=== PATIENT | female | born 1970 | race Caucasian/White ===

== ENCOUNTER 2023-04-30 10:19 | Emergency (ER) | payer OTHER, SELFPAY ==
[2023-04-30 10:32] VITALS: BP 127/99
[2023-04-30 11:21] VITALS: BP 97/83
--- NOTE | 2023-04-30 11:40 | ED.GENMED ---
History of Present Illness
General
Chief Complaint: Alcohol Problem
Source: patient and family
Time Seen by Provider: 04/30/23 11:13
Travel History
Have you had any contact with someone who has COVID-19?: No
Do you have any symptoms of coronavirus? Fever > 100 degrees, chills, cough, shortness of breath, sore throat, loss of taste or smell, muscle aches, or headache?: No
History of Present Illness
History of Present Illness:
52-year-old female who has not seen a doctor in many years presents emergency department seeking help regarding her alcoholism. She has not been in recovery in the past. She states that she drinks between 6-9 5 ounce glasses of wine per day, most
recently this morning. She denies physical symptoms such as chest pain, shortness of breath, abdominal pain, nausea, vomiting, bleeding. She does report loss of appetite and finds the process of eating unappealing to her. She has has episodes of
choking in the past, but denies pain with swallowing or chewing. She has lost weight in the last 2 years.
Past History
Past History
ED Past Medical History: HTN
Social History
Tobacco: Non-smoker
Alcohol: Chronic alcoholic
Drug: None
Personal:
Living: with family
Phy Exam
Physical Exam
Physical Exam:
GENERAL: Alert , in no apparent distress
EYE: pupils equal and reactive
NECK: Supple, no significant adenopathy.
ENT: o/p clr, mm slightly dry
CARDIAC: Regular rate and rhythm .
LUNGS: Clear breath sounds bilaterally, no acute respiratory distress, no wheezes/rales/rhonchi
ABDOMEN: Soft, without focal tenderness, no r/g, no cvat
NEUROLOGICAL: Alert and oriented, no focal neuro deficits but obviously slightly intoxicated
SKIN: Warm and dry, skin intact.
MUSCULOSKELETAL: No edema, well perfused.
PSYCH: Normal and appropriate interaction.
Scores
Withdrawal Assessment of Alcohol
Withdrawal Assessment Completed?: Not applicable
Course
Orders/Labs/Results
Orders:
Orders
04/30/23 11:41
Alcohol Urgent
Basic Metabolic Panel Urgent
Complete Blood Count/With Diff Urgent
Abnormal Lab Results
04/30/23
11:41
RBC 3.52 L 10^6/uL
(4.20-5.40)
Hct 35.7 L %
(37.0-47.0)
MCV 101.4 H fL
(81.0-99.0)
MCH 37.2 H pg
(27.0-31.0)
Immature Gran % 0.6 H %
(0-0.5)
Sodium 130 L mmol/L
(135-145)
Carbon Dioxide 21 L mmol/L
(22-30)
BUN 3 L mg/dl
(7-17)
Creatinine 0.5 L mg/dL
(0.6-1.0)
Glucose 160 H mg/dl
(70-99)
04/30/23 11:41
04/30/23 11:41
Vital Signs
Initial and Last Documented VS:
Initial Vital Signs
Temp Pulse Resp BP Pulse Ox
97.6 F 108 18 127/99 100
04/30/23 10:32 04/30/23 10:32 04/30/23 10:32 04/30/23 10:32 04/30/23 10:32
Last Documented Vital Signs
Temp Pulse Resp BP Pulse Ox
97.6 F 89 16 100/83 98
04/30/23 10:32 04/30/23 14:39 04/30/23 14:39 04/30/23 14:39 04/30/23 14:39
*Critical Care Note
Total Time (30-74mins, 75-104mins- exclusive of procedures): Not Applicable
Update Note
Update Note:
Patient presents to the Emergency Department with alcohol use disorder
Number and Complexity of Problems Addressed at the Encounter
� Chronic conditions affecting care:
� Acute Exacerbation and/or Progression of Chronic Illness:
� Differential Diagnosis includes: Alcohol use disorder, hepatitis, electrolyte disturbance, anemia, dehydration
Amount and/or Complexity of Data to be Reviewed and Analyzed
� I performed an independent evaluation of and my interpretation is:
EKG:
CT:
Xrays:
Laboratory Studies:
Other:
� Review of other/old records reveals:
� Clinical information was obtained by an independent historian: Son and daughter at bedside
� Prescriptions/Medications Considered but not given:
� Further testing considered but not performed:
Risk of Complications and/or Morbidity or Mortality of Patient Management
� Social determinants of health affecting care:
� Discussion with other providers (PCP, Hospitalists, Consultants, etc):
� Escalation of care including admission/observation vs risk of discharge considered:
ED Attending Note
-
Portions of this chart may have been created with voice recognition software.� Occasional wrong word or��sound alike� substitutions may have occurred due to the inherent limitations of voice recognition software.
Discharge Plan
Departure
Patient Disposition: Home (Routine Discharge)
Date of Disposition: 04/30/23
Time of Disposition: 14:14
Patient with high blood pressure during this ER visit?: Yes
Condition: Good
Discharge Problem:
Alcohol use disorder
Instructions: Alcohol Use Disorder (DC), BLOOD PRESSURE
Referrals:
NONE,* [Family Provider] -
Activity Restrictions/Additional Instructions:
PLEASE PROCEED TO THE TREATMENT FACILITY DIRECTED. TODAY YOUR SODIUM LEVEL IS LOW. THIS NEEDS TO BE RECHECKED WITHIN ONE WEEK.
IF YOU DEVELOP DIZZINESS, CHEST PAIN, TROUBLE BREATHING, VOMITING, FEVER, OR OTHER WORRISOME SIGNS, GO TO THE ER IMMEDIATELY!
Interventions
Interventions:
*Risk Screen - Suicide Last Done: 04/30/23 10:32
*General Assessment Last Done: 04/30/23 11:20
*Neglect/Abuse Screening Last Done: 04/30/23 10:32
ED- Fall Risk Assessment Last Done: 04/30/23 11:20
*ED COVID-19 Vaccine History Last Done: 04/30/23 10:32
*Nursing Disposition Last Done: 04/30/23 14:41
ED- Neurological Assessment Last Done: 04/30/23 11:20
ED-Psychological Assessment Last Done: 04/30/23 11:20
Discharge Date and Time
Discharge Date/Time: 04/30/23 14:42
--- NOTE | 2023-04-30 11:55 | ED TECH ---
Patient asked this PCT for a 'sandwich'. Pt would not answer any other questions regarding what kind of sandwich or drink. Patient was provided with a GF lunch box. When this PCT brought the lunch box in the room, patient excitedly sat up in bed and
reached for it. Patient is currently eating the cheese sandwich and drinking water.
[2023-04-30 12:08] LABS: Blood Urea Nitrogen 3 mg/dl (7-17); Calcium 8.9 mg/dl (8.4-10.2); Carbon Dioxide 21 mmol/L (22-30); Chloride 98 mmol/L (98-107); Glucose 160 mg/dl (70-99); Potassium 3.8 mmol/L (3.5-5.1); Sodium 130 mmol/L (135-145); eGFR > 60.00
[2023-04-30 12:26] LABS: Alcohol 347 mg/dl
[2023-04-30 12:40] LABS: % Eosinophils 1.6 % (0-6); % Immature Granulocytes 0.6 % (0-0.5); % Lymphocytes 26.2 % (20.5-51.1); % Monocytes 7.8 % (1.7-9.3); % Neutrophils 61.8 % (42.2-75.2); Absolute Basophils 0.1 10^3/uL (0-0.2); Absolute Eosinophils 0.1 10^3/uL (0-0.7); Absolute Lymphocytes 1.3 10^3/uL (1.2-3.4); Absolute Monocytes 0.4 10^3/uL (0.1-0.6); Absolute Neutrophils 3.1 10^3/uL (1.4-6.5); Hematocrit 35.7 % (37.0-47.0); Hemoglobin 13.1 g/dL (12.0-16.0); Mean Corp Hgb Conc. 36.7 g/dL (33.0-37.0); Mean Corpuscular Hgb 37.2 pg (27.0-31.0); Mean Corpuscular Volume 101.4 fL (81.0-99.0); Nucleated Red Blood Cells % 0 %; Platelet Count 319 10^3/uL (130-400); Red Blood Cell Count 3.52 10^6/uL (4.20-5.40); Red Cell Dist. Width 13.2 % (11.5-14.5)
[2023-04-30 14:39] VITALS: BP 100/83
== END 2023-04-30 14:42 | disposition home or self-care (01) ==
LOC: EMR 10:19
PROVIDERS: EMERGENCY PHYSICIAN Emergency Medicine
DX: F10.129 Alcohol abuse with intoxication, unspecified (principal); I10 Essential (primary) hypertension
CPT/HCPCS: 99283; 80048; 82077; 85025

== ENCOUNTER 2024-07-07 22:33 | Inpatient (IN) | payer OTHER, SELFPAY ==
[2024-07-07] VITALS (8 sets, daily range): BP systolic 83–102; BP diastolic 60–74; BMI 20.5
[2024-07-07 20:40] LABS: % Basophils 0.7 % (0-2); % Eosinophils 0.1 % (0-6); % Immature Granulocytes 0.7 % (0-0.5); % Lymphocytes 9.7 % (20.5-51.1); % Monocytes 3.6 % (1.7-9.3); % Neutrophils 85.2 % (42.2-75.2); Absolute Basophils 0.1 10^3/uL (0-0.2); Absolute Immature Granulocytes 0.1 10^3/uL (0-0.05); Absolute Monocytes 0.4 10^3/uL (0.1-0.6); Absolute Neutrophils 8.9 10^3/uL (1.4-6.5); Hemoglobin 9.5 g/dL (12.0-16.0); Mean Corp Hgb Conc. 35.2 g/dL (33.0-37.0); Mean Corpuscular Hgb 39.3 pg (27.0-31.0); Mean Corpuscular Volume 111.6 fL (81.0-99.0); Mean Platelet Volume 8.9 fL (7.4-10.4); Nucleated Red Blood Cells % 0 %; Platelet Count 236 10^3/uL (130-400); Red Blood Cell Count 2.42 10^6/uL (4.20-5.40); Red Cell Dist. Width 14.1 % (11.5-14.5); White Blood Cell Count 10.4 10^3/uL (4.8-10.8)
[2024-07-07 20:51] LABS: ALT (SGPT) 46 U/L (0-35); AST (SGOT) 210 U/L (14-36); Albumin 3.2 g/dl (3.5-5.0); Alkaline Phosphatase 310 U/L (38-126); Blood Urea Nitrogen 5 mg/dl (7-17); Calcium 8.1 mg/dl (8.4-10.2); Carbon Dioxide 18 mmol/L (22-30); Chloride 93 mmol/L (98-107); Glucose 108 mg/dl (70-99); Potassium 4.4 mmol/L (3.5-5.1); Sodium 129 mmol/L (135-145); Total Bilirubin 2.7 mg/dl (0.2-1.3); Total Protein 6.5 g/dl (6.3-8.2); eGFR > 60.00
[2024-07-07] MEDS: PROTONIX 100 IV (21:23)
[2024-07-07] MEDS: PROTONIX IV 80 MG IV (21:23)
[2024-07-07] MEDS: SANDOSTATIN 50 MCG IV (21:27)
[2024-07-07 21:33] LABS: INR 1.53; PT 18.9 Sec (11.4-14.6)
[2024-07-07] MEDS: SANDOSTATIN 500.6 MCG IV (21:43)
--- NOTE | 2024-07-07 21:45 | ED.GENMED ---
History of Present Illness
General
Chief Complaint: Rectal Bleeding
Source: patient
Exam Limitations: none
Time Seen by Provider: 07/07/24 20:46
History of Present Illness
History of Present Illness:
54-year-old female started with bright red rectal bleeding last night. Multiple episodes last night. Recurring episodes this morning. None since then. Admits to daily alcohol use. Last drank this morning. No history of significant GI bleeding
Past History
Past History
ED Past Medical History: HTN and Other (Alcohol use)
ED Past Surgical History:
Social History
Tobacco: Non-smoker
Alcohol: Chronic alcoholic
Drug: None
Personal:
Living: with family
Review of Systems
Review of Systems
All Other Systems: Not applicable
Constitutional: Denies fever
Cardiac: Reports no symptoms
ABD/GI: Denies abdominal pain or vomiting
Phy Exam
Physical Exam
Physical Exam:
GENERAL: Alert and oriented. Thin and cachectic.
EYE: Orbits normal.
NECK: Supple, no significant adenopathy.
ENT: Pharynx without erythema
CARDIAC: Regular rate and rhythm without any obvious murmurs.
LUNGS: Clear breath sounds,normal
ABDOMEN: Soft, mildly distended. Positive mild fluid wave. No rebound or guarding no mass or hernia. Rectal exam with dark melanotic appearing stool to test positive. There is some bright red blood in her underwear
NEUROLOGICAL: Alert and oriented , grossly non-focal
SKIN: Warm and dry, no rash or lesion, no discoloration, skin intact.
MUSCULOSKELETAL: No edema,no deformity.Good color. Mildly cachectic
PSYCH: Normal and appropriate interaction.
Course
Orders/Labs/Results
Orders:
Orders
07/07/24 20:19
Type And Crossmatch [Type+Screen] Urgent
Alcohol Urgent
Complete Blood Count/With Diff Urgent
Comprehensive Metabolic Panel Urgent
07/07/24 21:08
ABO2 Urgent
BBK Wristband Number:
Associate notified that ABO2 has been ordered: [id number]
Date: 07/07/24
Time: 20:47
Milk Processing Worker ID: [id number]
07/07/24 21:14
IV Insert/Care/Rem.- Treatment PRN
Octreotide [Sandostatin] 50 mcg IV NOW STA
Pantoprazole 80 mg/100 ml Nss [Protonix] 80 mg in 100 ml IV NOW
Pantoprazole [Protonix IV] 80 mg IV NOW STA
07/07/24 21:16
PT/INR [Prothrombin Time] Urgent
PTT Urgent
07/07/24 21:18
Add On- LAB Urgent
Tests Added?: alcohol
07/07/24 21:22
Octreotide Acetate [Sandostatin] 600 mcg 0.9% Sodium Chloride 500 ml [Nss] 500 ml IV NOW
07/07/24 21:44
* Blood Bank Products Urgent
Blood Bank Products: *Packed RBC Leuko(PRBC's)
Quantity: 1
Transfuse Today: Yes
Reason: Bleeding
IV Insert/Care/Rem.- Treatment PRN
07/07/24 22:02
Admit/Transfer Patient As Directed
Co-Sign Provider:
Level of Care: Inpatient admission
Assign to:: Telemetry
Physician / Group: hospitalist
Diagnosis: rectal bleeding
Reason for Telemetry: Other
Other Reason for Telemetry: gi bleed
Date to Stop Telemetry: 07/09/24
Time to Stop Telemetry: 11:00
Reason for Hospitalization: gi bleed
Expected length of stay greater than two midnights?: Yes
ELOS- Estimated Length of Stay in days: 2
I certify the patient meets the requirements for IP care: Yes
Code Status As Directed
Resuscitation Status: Full Code
PRN Pain Medication Management As Directed
May give lesser potent ordered pain med per pt: Yes
preference::
Protocol:: Medication orders for pain may be administered in a
manner that supports deferring to patient preference
when the pt is:
- Requesting an ordered lesser potent pain medication.
Least to most potent pain medications are defined
as: acetaminophen < NSAID < tramadol < opioids
(morphine, oxycodone, hydromorphone).
- Requesting a lesser dose of the same medication IF
ORDERED.
- Requesting a less intrusive route of administration
if both routes are prescribed by the provider (PO <
IV).
07/09/24 11:00
DC Protocol for Telemetry ONCE
Abnormal Lab Results
07/07/24 07/07/24
20:19 21:16
RBC 2.42 L 10^6/uL
(4.20-5.40)
Hgb 9.5 L g/dL
(12.0-16.0)
Hct 27.0 L %
(37.0-47.0)
MCV 111.6 H fL
(81.0-99.0)
MCH 39.3 H pg
(27.0-31.0)
Abs Immat Gran (auto) 0.1 H 10^3/uL
(0-0.05)
Absolute Neuts (auto) 8.9 H 10^3/uL
(1.4-6.5)
Absolute Lymphs (auto) 1.0 L 10^3/uL
(1.2-3.4)
Immature Gran % 0.7 H %
(0-0.5)
Neutrophils % 85.2 H %
(42.2-75.2)
Lymphocytes % 9.7 L %
(20.5-51.1)
PT 18.9 H Sec
(11.4-14.6)
Sodium 129 L mmol/L
(135-145)
Chloride 93 L mmol/L
(98-107)
Carbon Dioxide 18 L mmol/L
(22-30)
BUN 5 L mg/dl
(7-17)
Creatinine 0.5 L mg/dL
(0.6-1.0)
Glucose 108 H mg/dl
(70-99)
Calcium 8.1 L mg/dl
(8.4-10.2)
Total Bilirubin 2.7 H mg/dl
(0.2-1.3)
AST 210 H U/L
(14-36)
ALT 46 H U/L
(0-35)
Alkaline Phosphatase 310 H U/L
(38-126)
Albumin 3.2 L g/dl
(3.5-5.0)
Crossmatch IS Only See Detail
07/07/24 20:19
07/07/24 20:19
Vital Signs
Initial and Last Documented VS:
Initial Vital Signs
Temp Pulse Resp BP Pulse Ox
98.2 F 126 20 93/63 99
07/07/24 20:06 07/07/24 20:06 07/07/24 20:06 07/07/24 20:06 07/07/24 20:06
Last Documented Vital Signs
Temp Pulse Resp BP Pulse Ox
98.2 F 112 29 94/64 99
07/07/24 20:06 07/07/24 21:00 07/07/24 21:00 07/07/24 20:50 07/07/24 20:57
MDM/Problems Addressed
Differential Diagnosis Includes:
Patient with a GI bleed. Hypotensive down to 80 although self resolved to 102. Significant alcohol use. Clinically I suspect some cirrhosis and liver disease with mild ascites. GI bleed more likely upper GI. Protonix and octreotide ordered.
Discussed with GI and hospitalist. Consent for blood signed. I will give 1 unit of blood given the degree of bleeding described
*Pulse Oximetry
Patient hypoxic: no
*Tnt Line Supervisor Interpretation
Rate: tachycardiac
Interpretation: abnormal
Heart Rate: 110
Rhythm: sinus
*Critical Care Note
Total Time (30-74mins, 75-104mins- exclusive of procedures): 45
Data Reviewed
Review of Other/Old Records Reveals: Labs
Update Note
Update Note:
2144.... GI and hospitalist contacted previously. Blood pressure 102. Has not had significant bleeding since this morning. Do not feel CTA is warranted at this time. With a drop in hemoglobin and patient's description of bleeding I feel a unit
of blood is reasonable at this time despite still having a hemoglobin of 9.5. Risk-benefit explained to the patient and . Consent signed.
ED Attending Note
-
Portions of this chart may have been created with voice recognition software.� Occasional wrong word or��sound alike� substitutions may have occurred due to the inherent limitations of voice recognition software.
Discharge Plan
Departure
Patient Disposition: Admit
Date of Disposition: 07/07/24
Time of Disposition: 21:45
Presentation/result/management discussed w/ accepting MD/DO: Gastroenterology
Discharge Problem:
Suspect upper GI bleed, Symptomatic anemia, Liver disease, Alcohol use disorder
Interventions
Interventions:
*Risk Screen - Suicide Last Done: 07/07/24 20:03
*General Assessment Last Done: 07/07/24 21:35
MJ-Zvgziw-Fulrojwxeg Assessment Last Done: 07/07/24 20:57
ED- Cardiac Assessment Last Done: 07/07/24 20:57
ED- Pulmonary Assessment Last Done: 07/07/24 20:57
--- NOTE | 2024-07-07 21:48 | HPS.HSE ---
Family Physician
-
Family Physician:
Chief Complaint
-
Bright red blood per rectum
History of Present Illness
This is a 54-year-old female with past medical history that is unknown but describes history of alcohol use presenting to the emergency department with bloody bowel movements.
Patient reported that she had multiple episodes of bloody bowel movements last night over a 3-hour period. She had another episode this morning. She described it as red blood. She also describes as dark stools. She denies seeing any clots. She
denied having any abdominal pain. She denies nausea or vomiting. She reports feeling dizzy on arrival in the emergency department. She denied having any chest pain. She denies feeling short of breath.
Patient denies any medications including NSAIDs, blood thinners, antiplatelets. She denies any prior history of her rectal bleeding or melena.
Patient does not follow with physicians. She drinks 3 glasses of wine every night and has been doing so for several years. He seems reticent about given complete picture and was upset that spouse was going to give details. She denies history of
withdrawal symptoms. She has never undergone detox or rehab.
She reports that she has had increased abdominal girth over the last 2 weeks. She denies any fevers or chills. She denies any changes to the color of her eyes or urine. She denies any pruritus.
In the emergency department initial blood pressure was 90/60 with a pulse rate of 112 she was satting 98% on room air. Respiratory rate was 20. Hemoglobin was 9.5, prior hemoglobin here was 11. CBC otherwise unremarkable. Sodium is 129, BUN 5
creatinine 0.5. Glucose was normal. AST 210 and ALT 40 and bilirubin was 2.7.
Medical History
Past Medical History
Past Medical History: Reports Other (Alcohol dependence)
Past Surgical History: Reports None
Social History
Tobacco: Smoker
Alcohol: Daily
Drug: None
Personal:
Living: With Family
Employment: Not Employed
Family History
Family History: Not pertinent
Allergies / Home Medications
Allergies reflects when Allergies were last updated in [employer].
Home Medications with original date entered in [employer]
Allergy/Medication List:
Allergies
Allergy/AdvReac Type Severity Reaction Status Date / Time
No Known Allergies Allergy Verified 07/07/24 20:06
Home Medications
No Meds [No Current Medications] 07/07/24
Review of Systems
-
History Source: Patient
Constitutional: Reports No Symptoms
EENT: Reports No Symptoms
Respiratory: Reports No Symptoms
Cardiac: Reports No Symptoms
Abdomen/GI: Reports Bloody Stools
: Reports No Symptoms
Musculoskeletal: Reports No Symptoms
Skin: Reports No Symptoms
Neurological: Reports No Symptoms
Endocrine: Reports No Symptoms
Hematologic/Lymphatic: Reports No Symptoms
Psych: Reports No Symptoms
Physical Exam
Vital Signs
Vital Signs
Temp Pulse Resp BP Pulse Ox
98.2 F 112 29 94/64 99
07/07/24 20:06 07/07/24 21:00 07/07/24 21:00 07/07/24 20:50 07/07/24 20:57
Physical Exam
General: Well Developed, Well Nourished, No Apparent Distress and Comfortable
HEENT: NormoCephalic, Anicteric, Moist mucous membranes and Atraumatic
Respiratory: Clear
Cardiac: S1/S2, Regular Rhythm and Tachycardia
GI: Soft, Non Tender, Non Distended and Normal Bowel Sounds
Rectal: Black and Hem Positive
Genito-urinary: Deferred by me
Musculoskeletal: No Clubbing, No Cyanosis and No Edema
Skin: Warm
Neuro: AO x 3 and Nonfocal/grossly intact
Hematologic/Lymphatic: No Lymphadenopathy
Psych: Calm
Laboratory Results
-
07/07/24 20:19
04/16/25 20:19
Laboratory Results
Total Bilirubin 2.7 mg/dl (0.2-1.3) H 07/07/24 20:19
AST 210 U/L (14-36) H 07/07/24 20:19
ALT 46 U/L (0-35) H 07/07/24 20:19
Alkaline Phosphatase 310 U/L (38-126) H 07/07/24 20:19
Data Reviewed
-
Lab Data: Labs Reviewed by me
Old Records: Reviewed
Impression/Plan
-
IMPRESSION:
54-year-old female with history of alcohol dependence/alcohol abuse who presents to the emergency department following bloody bowel movements over 3. Last night, currently no active bleeding and has rectal that was dark stool and guaiac positive.
Concern is for melena that is secondary to upper GI bleed possibly from alcoholic gastritis versus variceal bleeding. 80 highly concern for variceal bleeding as patient arrived with a blood pressure of 90 systolic. She has signs of alcoholic liver
disease with elevated AST to 200 and ALT only 40. Bilirubin also elevated at 2.7. She does not look acutely jaundiced. She appears to have mild abdominal swelling consistent with probably small to moderate ascites. No prior diagnosis of
cirrhosis.
PLAN:
1. GI bleed -melena on exam here, patient reports bright red blood per rectum. Possibly lower GI bleed but cannot rule out upper GI bleed from gastritis or varices.
- admit to telemetry
- NPO for now except sips
- type and screen
- she is getting 1 unit of blood, will not transfuse further at this time
- if HD unstable, will get CT GI bleeding scan
- H&H q 8
- ppi iv bid for now
- will continue octreotide till GI eval
2. Liver disease - Suspect etoh hepatitis vs cirrhosis
- check U/S for cirrhosis and ascites
3. Alcohol dependence - last drink this am.
- will place on low risk protocol for now
- check folate levels in am
- will likely refuse oral meds
4 - Hyponatremia - suspect etoh vs cirrhosis.
- free water restriction for now while getting transfused
- check urine na and osm
DVT PPX - SCDs
Code status - Full
[2024-07-07 22:01] LABS: Alcohol 369 mg/dl
[2024-07-08] VITALS (63 sets, daily range): BP systolic 64–129; BP diastolic 45–97; BMI 20.5
[2024-07-08] MEDS: NSS 1000 IV (01:02)
[2024-07-08] MEDS: ZOFRAN 4 MG IV ×2 (02:32→11:53)
--- NOTE | 2024-07-08 02:53 | PTCARENOTE ---
Received patient from ED AAOx3, following commands, denying pain. Anxious and slightly agitated. ST 110s-120s, BP 70s-90s/40s-70s, normothermic. Attempted to give midodrine, patient threw up, AEROSOL LINE OPERATOR aware. Zofran given. 100% on room air, lung sounds
diminished throughout. Abdomen round, distended, ascites. Bladder scanned for 300 mls, no urine output yet. No BM. Bruises on knees from fall at home. PIVs patent, WNL. Octreotide and protonix gtt ongoing per order. Labs sent, CHG bath done,
purewick placed. Call julian within reach.
[2024-07-08 03:20] LABS: Hematocrit 27.3 % (37.0-47.0); Hemoglobin 9.5 g/dL (12.0-16.0); Mean Corp Hgb Conc. 34.8 g/dL (33.0-37.0); Mean Corpuscular Hgb 36.3 pg (27.0-31.0); Mean Corpuscular Volume 104.2 fL (81.0-99.0); Mean Platelet Volume 9.3 fL (7.4-10.4); Platelet Count 160 10^3/uL (130-400); Red Blood Cell Count 2.62 10^6/uL (4.20-5.40); Red Cell Dist. Width 20.8 % (11.5-14.5); White Blood Cell Count 8.5 10^3/uL (4.8-10.8)
[2024-07-08 03:23] LABS: INR 1.54
[2024-07-08 03:48] LABS: ALT (SGPT) 36 U/L (0-35); AST (SGOT) 168 U/L (14-36); Albumin 2.5 g/dl (3.5-5.0); Alkaline Phosphatase 224 U/L (38-126); Blood Urea Nitrogen 4 mg/dl (7-17); Calcium 7.1 mg/dl (8.4-10.2); Carbon Dioxide 14 mmol/L (22-30); Chloride 98 mmol/L (98-107); Direct Bilirubin 1.4 mg/dl (0.0-0.4); Estimated Creatinine Clearance 80 ml/min; Glucose 53 mg/dl (70-99); Iron 104 ug/dl (37-170); Potassium 4.5 mmol/L (3.5-5.1); Sodium 130 mmol/L (135-145); Total Bilirubin 2.8 mg/dl (0.2-1.3); Total Protein 5.5 g/dl (6.3-8.2); eGFR > 60.00
[2024-07-08 03:51] LABS: Percent Saturation 87 % (20-50); Total Iron Binding Capacity 119 ug/dl (265-497)
[2024-07-08] MEDS: DEXTROSE 50% SYRINGE 12.5 GRAMS IV (04:06)
[2024-07-08 04:27] LABS: Glucose - Point of Care 134 mg/dl (70-99)
--- NOTE | 2024-07-08 04:30 | W.PN.UPDATE ---
Update Note
Progress Note Update
- After discussion with Dr. Esqueda- Juvenal gtt W/ D5W ordered to help correct Carbon Dioxide level of 14 and maintain glucose levels-
-Glucose on venous stick was (53)- 1/2 amp of dextrose given and repeat AccuCheck was 134.
-AccuChecks ordered Q6H for 24hrs
[2024-07-08] MEDS: SODIUM BICARBONATE 1150 MEQ IV (04:55)
[2024-07-08 05:11] LABS: Folate 3.1 ng/ml (2.76-20); Vitamin B12 836 pg/ml (239-931)
--- NOTE | 2024-07-08 05:56 | PTCARENOTE ---
Accidentally saved heart rate of 48, not accurate, patient consistently 80s-110s.
[2024-07-08 06:35] LABS: Glucose - Point of Care 158 mg/dl (70-99)
--- NOTE | 2024-07-08 08:00 | PTCARENOTE ---
Received patient from shift superintendent caustic cresylate. patient is drowsy, somnolent, arousable. AAOx3, irritable affect. he is on room air, 92%. Patient is sinus tach on monitor. Monitor is continuing to alarm aystole and apnea, but is not counting beats. patient
does have a pulse, replaced leads and changed settings on monitor. Has been happening intermittently. Patient pressures are soft, but maintaining map >65. Patient is NPO with protonix and sandostatin gtt running. IVF with bicarb running. REpeat
labs to be sent. Will review orders. plan for GI consult for possible endoscopy.
[2024-07-08] MEDS: FOLVITE PO (08:05)
[2024-07-08] MEDS: PROTONIX 100 IV ×2 (08:12→17:05)
[2024-07-08] MEDS: THIAMINE INJECTION 200 MG IV ×2 (08:13→19:47)
[2024-07-08 08:41] LABS: Glucose - Point of Care 170 mg/dl (70-99)
[2024-07-08 08:44] LABS: Lactic Acid 4.5 mmol/L (0.7-2.0)
--- NOTE | 2024-07-08 08:50 | CON.GI ---
Addendum entered and electronically signed by Tomas Powell MD 07/08/24 12:17:
MELD - Na (07/08)- 22
Addendum entered and electronically signed by Tomas Powell MD 07/08/24 12:14:
I saw and examined the patient.
The PA's note was reviewed and I agree with the note.
Cirrhosis with ascites / ETOH abuse / ETOH intoxication / dark stool/ rectal bleeding / anemia
plan
NPO
monitor H/H
continue PPI/ octerotide drip
EGD today
IR eval for paracentesis
will repeat US abd with doppler to evaluate portal vein
daily MELD labs
outpatient GI/hepatology follow up further work up and management of cirrhosis
ETOH withdrawal protocol as per medical team
Original Note:
Consultation
-
Date/Time Consultation Requested: 07/08/24138
Date/Time Consultation Performed: 07/08/24 0864
Requesting Provider: Dr. Guzmán
Performing Provider: Dr. Powell / Valeria Warren PA-C
Reason for Consultation: rectal bleeding
Medical History
Chief Complaint / HPI
Chief Complaint: rectal bleeding
History of Present Illness:
Jenni Frye is a 54 year old female with a past medical history of chronic alcohol abuse who does not seek medical care who presented to the ER with persistent rectal bleeding that started the day prior to arrival in the ED. Bleeding was noted to be
both 'dark and bright red' and filled the toilet bowl. No diarrhea, constipation, abdominal pain, nausea, vomiting, fevers or chills. She does note that she had previously experienced intermittent rectal bleeding, 'but never this bad.' She does note
having a cold about 2 weeks ago. She also complains of increasing abdominal distension over the past 2 weeks, which she had never had before. Patient admits to drinking 3 to 5 glasses of wine a day for many years (although during a previous ER visit
last year she admitted to drinking up to 9 glasses of wine/day). Per the ER note, at that time (04/2023) she was seeking help with her drinking problem, but never did any outpatient or inpatient rehab. No current drug use, but she does admit to prior
drug use stating 'you name it, I did it,' although she denies a history of IVDA. She occasionally takes NSAIDs. She does not see doctors and has never had an endoscopy or colonoscopy. She denies a family history of GI cancers or liver disease.
Upon arrival in the ER, labs showed a macrocytic anemia with hemoglobin of 9.5, MCV 111.6, WBC 10.4, platelets 236. Na 129, K 4.4, CO2 18, BUN 5, creatinine 0.5. LFTs as follows: total bilirubin 2.7, AST 210, ALT 46, alk phos 310, albumin 3.2 and PT
18.9, INR 1.53. Blood alcohol 369. She had imaging studies, both ultrasound and CTA abdomen/pelvis. CT showed diffuse intraperitoneal ascites and nodular contour of the liver, suggestive of cirrhosis; without evidence of active GI bleeding. Rectal
examination in the ER showed melena and heme positive. Patient was hypotensive, with BP as low as 73/49 but improved now. She did receive 1 unit PRBCs. Lactic acid elevated today at 4.5. She has been afebrile.
Past Medical History
Past Medical History: Other (chronic alcohol abuse)
Past Surgical History: None
Social History
Tobacco: Smoker (1/2 PPD)
Alcohol: Chronic Alcoholic ('3-5 glasses of wine a day')
Drug: Former User (denies IVDA)
Personal:
Living: With Family
Employment: Not Employed
Family History
Family History: Other (denies family history of GI malignancies or liver disease)
Allergies / Home Medications
Allergy/AdvReac Type Severity Reaction Status Date / Time
No Known Allergies Allergy Verified 07/07/24 20:06
�Medication �Instructions �Recorded
No Meds [No Current Medications] 07/07/24
Review of Systems
-
History Source: Patient
All other systems: A 12 pt ROS was Negative except as stated above in HPI
Vital Signs
Temp Pulse Resp BP Pulse Ox
97.8 F 75 19 97/74 97
07/08/24 08:35 07/08/24 05:45 07/08/24 05:45 07/08/24 05:30 07/08/24 05:45
Physical Exam
Exam
General: Other (thin appearing female in no acute distress)
HEENT: Anicteric
Respiratory: Clear
Cardiac: Regular Rhythm
GI: Soft, Non Tender, Normal Bowel Sounds and Distended
Rectal: Other (dark, heme positive (per ER rectal exam))
Skin: Warm and Dry
Neuro: Awake, Alert and Oriented
Psych: Calm (with occasional agitation)
Results
WBC Cancelled 07/08/24 06:00
Hgb Cancelled 07/08/24 22:00
Hct Cancelled 07/08/24 22:00
MCV Cancelled 07/08/24 06:00
Plt Count Cancelled 07/08/24 06:00
Absolute Neuts (auto) 8.9 10^3/uL (1.4-6.5) H 07/07/24 20:19
PT 19.0 Sec (11.4-14.6) H 07/08/24 02:50
PT Cancelled 07/08/24 02:50
INR 1.54 07/08/24 02:50
INR Cancelled 07/08/24 02:50
APTT 34.0 Sec (23.4-35.0) 07/07/24 21:16
Sodium 130 mmol/L (135-145) L 07/08/24 02:50
Potassium 4.5 mmol/L (3.5-5.1) 07/08/24 02:50
Chloride 98 mmol/L (98-107) 07/08/24 02:50
Carbon Dioxide 14 mmol/L (22-30) L* 07/08/24 02:50
BUN 4 mg/dl (7-17) L 07/08/24 02:50
Creatinine 0.5 mg/dL (0.6-1.0) L 07/08/24 02:50
Calcium 7.1 mg/dl (8.4-10.2) L 07/08/24 02:50
Total Bilirubin 2.8 mg/dl (0.2-1.3) H 07/08/24 02:50
AST 168 U/L (14-36) H 07/08/24 02:50
ALT 36 U/L (0-35) H 07/08/24 02:50
Alkaline Phosphatase 224 U/L (38-126) H 07/08/24 02:50
Diagnostic Image Results:
CTA Abdomen/Pelvis 07/08/24:
1. No evidence of active gastrointestinal hemorrhage at the time of imaging severe heterogeneity and heterogeneous enhancement within the liver, with severe fatty infiltration predominantly involving the right hepatic lobe. Findings are suggestive
of severe nonspecific hepatitis, superimposed on geographic fatty infiltration of liver. Nodular hepatic contour, suggestive of hepatic cirrhosis.
2. Diffuse intraperitoneal ascites, simple fluid attenuation. No intraperitoneal hemorrhage is appreciated.
3. Asymmetric wall thickening involving the urinary bladder. This may be related to cystitis, or reactive due to adjacent ascites. Bladder neoplasm is not excluded, please correlate with symptoms and if indicated with cystoscopy.
4. Severe coronary arterial calcification. Please correlate with symptoms of and risk factors for coronary artery disease, with further workup as clinically appropriate.
US Abdomen 07/08/24:
At least moderate volume ascites likely accounting for gallbladder wall thickening.
No evidence of cholelithiasis or findings to suggest biliary tract dilatation.
Hepatomegaly with probable fatty liver, geographic pattern. Possible hepatic cirrhotic morphology.
Blood flow not confirmed in the main portal vein.
Pancreas, spleen, abdominal aorta and IVC significantly obscured, at least in part likely due to overlying bowel gas.
Prior GI Procedures:
EGD: Never
Colonoscopy: Never
Assessment / Plan
-
54 year old female with history of chronic alcohol abuse presenting with rectal bleeding and complaints of increasing abdominal distension. She denies abdominal pain, nausea, vomiting or fevers/chills. She reported seeing both bright red blood and
dark blood. Now presenting with melena. Labs showing a macrocytic anemia with hemoglobin of 9.5, MCV 111.6, WBC 10.4, platelets 236. Na 129, K 4.4, CO2 18, BUN 5, creatinine 0.5. LFTs: total bilirubin 2.7, AST 210, ALT 46, alk phos 310, albumin 3.2
and PT 18.9, INR 1.53. Blood alcohol 369. CT showed diffuse intraperitoneal ascites and nodular contour of the liver, suggestive of cirrhosis; without evidence of active GI bleeding. Rectal examination in the ER showed melena and heme positive.
Patient was hypotensive, with BP as low as 73/49 but improved now. She did receive 1 unit PRBCs. Lactic acid elevated today at 4.5, patient has been afebrile during entire admission thus far.
IMPRESSION / PLAN:
Rectal bleeding/Melena - suspect GI bleeding secondary to alcoholic gastritis vs esophageal varices vs possible lower GI bleed as well as she reported seeing BRBPR
- Hgb 9.5, s/p 1 unit PRBCs
- trend Hgb, transfuse if falls below 7
- CTA without evidence of active bleeding
- continue NPO
- continue PPI gtt and IV octreotide
- endoscopic evaluation, to discuss timing of EGD further with Dr. Powell
Cirrhosis, likely secondary to chronic ETOH, with ascites
- consult IR for paracentesis
- Hepatitis serologies pending
Alcohol Abuse
- no evidence of acute withdrawal currently
We will follow, with hospitalist/rib matcher and fitter team.
-
-
Thank you for consultation and allowing me to participate in the patient's care. Please call the vocational nursing instructor GI physician during the after hours with any questions or concerns.
[2024-07-08 09:02] LABS: Blood Urea Nitrogen 4 mg/dl (7-17); Calcium 6.8 mg/dl (8.4-10.2); Carbon Dioxide 13 mmol/L (22-30); Chloride 99 mmol/L (98-107); Estimated Creatinine Clearance 80 ml/min; Glucose 143 mg/dl (70-99); Potassium 4.5 mmol/L (3.5-5.1); Sodium 128 mmol/L (135-145); eGFR > 60.00
[2024-07-08 09:09] LABS: Glycohemoglobin (HgbA1c) 3.9 % (4.0-5.6)
--- NOTE | 2024-07-08 09:43 | W.PN.HOSP.TC ---
Today's Communication/Plan
-
see PN
Assessment / Plan
Assessment / Plan
54yo F with no reported PMHx, not visiting doctors, alcohol abuse came witbh episode of bloody stool. She had similar before but did not see doctors for it. Also with elevated alcohol level managed for alcohol withdrawal.
A/P:
#Acute blood loss anemia 2/2 hematochezia
CTA on admissio without active bleeding and no hemodynamically significant stenosis of mesenteric arteries
Serial H&H, transfuse as needed
PPI
GI consult
Avoid antiplatelets, anticoag and NSAIDs
#Alcohol abuse with impending withdrawal
MSAS, watch for DT
Thiamine/FOlate
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
#Lactic acidosis
possibly 2/2 NO-induced hypotension with cirrhosis and chronic alcohol use
Follow lactate
IVF with bicarb
Midodrine
check Chest
#Abdominal distension with ascites non-hemorrhagic appearing on CT
concern for alcoholic liver disease with radiographic cirrhosis
abdomen non-tender
will need paracentesis when hemodynamically stable
#Hypoglycemia
D5
Accuchecks
follow HgbA1c and BHB
#Subsegmental atelectasis
Incentive spirometry
#Bladder wall thickening
check UA
outpatient urology for possible cystoscopy
#Portal flow bnot confirmed on US
will discuss with radiologist to review portal vessels on CTA
#hypocalcemia
replete and follow electrolytes
#Bilirubinemia
#Transaminitis
#Elevated alk.phos
No overt signs of cholecystitis on imaging, most likely elevation 2/2 alkohol, liver cirrhosis
check ferritin
follow LFT
check hepatitis panel
DVT ppx SCDs
Full code
I have spent at least 57min reviewing chart, test results, communication with consultants and providing direct patient care
Anticipated Discharge: > 48 hours
Subjective/Interval History
-
Date of Service: July 08, 2024
Objective Data
-
Labs:
Laboratory Results
07/07/24 07/08/24 07/08/24
21:16 02:50 02:50
WBC 8.5
Hgb 9.5 L
Hct 27.3 L
Plt Count 160 D
PT 18.9 H 19.0 H Cancelled
INR 1.53 1.54
APTT 34.0
Sodium
Potassium
Chloride
Carbon Dioxide
BUN
Creatinine
Glucose
Calcium
Total Bilirubin
AST
ALT
Alkaline Phosphatase
07/08/24 07/08/24 07/08/24
02:50 06:00 08:10
WBC Cancelled
Hgb Cancelled
Hct Cancelled
Plt Count Cancelled
PT
INR Cancelled
APTT
Sodium 130 L 128 L
Potassium 4.5 4.5
Chloride 98 99
Carbon Dioxide 14 L* 13 L*
BUN 4 L 4 L
Creatinine 0.5 L 0.5 L
Glucose 53 L* 143 H
Calcium 7.1 L 6.8 L*
Total Bilirubin 2.8 H
AST 168 H
ALT 36 H
Alkaline Phosphatase 224 H
07/08/24 07/08/24 07/08/24
11:00 14:00 19:00
WBC
Hgb Pending Cancelled Pending
Hct Pending Cancelled Pending
Plt Count
PT
INR
APTT
Sodium
Potassium
Chloride
Carbon Dioxide
BUN
Creatinine
Glucose
Calcium
Total Bilirubin
AST
ALT
Alkaline Phosphatase
07/08/24
22:00
WBC
Hgb Cancelled
Hct Cancelled
Plt Count
PT
INR
APTT
Sodium
Potassium
Chloride
Carbon Dioxide
BUN
Creatinine
Glucose
Calcium
Total Bilirubin
AST
ALT
Alkaline Phosphatase
Vital Signs:
Vital Signs
Temp Pulse Resp BP Pulse Ox
97.8 F 92 22 94/74 95
07/08/24 08:35 07/08/24 09:15 07/08/24 09:15 07/08/24 09:00 07/08/24 09:15
I&O
07/07/24 07/08/24 07/09/24
06:59 06:59 06:59
Intake Total 658.5 / 785.2 380.1 / 380.1
Balance 658.5 / 785.2 380.1 / 380.1
Review of Systems
-
History Source: Patient
All other systems: Reviewed and negative
Abdomen/GI: Reports Bloody Stools
Physical Exam
-
General: No Apparent Distress
HEENT: Normocephalic
Respiratory: Clear to Auscultation
Cardiac: Regular Rhythm
GI: Soft, Nontender and Distended
Musculoskeletal: No Clubbing, No Cyanosis and No Edema
Neuro: Awake, Alert, Oriented and AO x 3; Negative Tremors
Psych: Agitated
[2024-07-08 10:22] LABS: ALT (SGPT) 33 U/L (0-35); AST (SGOT) 131 U/L (14-36); Albumin 2.1 g/dl (3.5-5.0); Alkaline Phosphatase 187 U/L (38-126); Direct Bilirubin 1.5 mg/dl (0.0-0.4); Magnesium 1.6 mg/dl (1.6-2.3); Phosphorus 3.7 mg/dl (2.5-4.5); Total Bilirubin 2.8 mg/dl (0.2-1.3); Total Protein 4.8 g/dl (6.3-8.2)
[2024-07-08] MEDS: SANDOSTATIN 500.6 MCG IV (10:56)
[2024-07-08 11:26] LABS: Hematocrit 23.7 % (37.0-47.0); Hemoglobin 8.6 g/dL (12.0-16.0)
[2024-07-08 11:27] LABS: Urine Albumin 2+ (Neg - Trace); Urine Bilirubin 1+ (Negative); Urine Character Slightly Cloudy (Clear); Urine Color Amber; Urine Glucose Negative (Negative); Urine Ketone 3+ (Negative); Urine Leukocyte 3+ (Negative); Urine Nitrite Negative (Negative); Urine Occult Blood 4+ (Negative); Urine Urobilinogen 3+ (Neg - 1+)
--- NOTE | 2024-07-08 11:30 | PTCARENOTE ---
Took patient to GI lab for EGD. Two areas of erosions round, clips placed by physician. Sandostatin discontinued. Then took patient to [facility] for paracentesis.
[2024-07-08 11:35] LABS: Urine Bacteria Many (Negative)
[2024-07-08 11:37] LABS: Glucose - Point of Care 176 mg/dl (70-99)
[2024-07-08 11:38] LABS: Amphetamines Negative (Negative); Barbiturates Negative (Negative); Benzodiazepines Negative (Negative); Buprenorphine Negative (Negative); Cocaine Negative (Negative); Marijuana Negative (Negative); Methadone Negative (Negative); Methamphetamines Negative (Negative); Opiates Negative (Negative); Phencyclidine Negative (Negative); Tricyclic Antidepressants Negative (Negative)
[2024-07-08] MEDS: ZOSYN 50 IV (11:42)
[2024-07-08] MEDS: ProAmatine PO ×3 (11:42→17:01)
--- NOTE | 2024-07-08 12:39 | W.PN.UPDATE ---
Update Note
Progress Note Update
As per review with radiologist of the CTA: The portal and hepatic veins are well opacified, definitely no thrombus in either system
[2024-07-08 12:45] LABS: Hepatitis B Core Ab, Total Negative (Negative); Hepatitis B Surface Antibody Negative; Hepatitis C Antibody Negative (Negative)
--- NOTE | 2024-07-08 14:00 | PTCARENOTE ---
Patient returned from [facility], 2000L of fluid taken off during paracentesis. Ultrasound at bedside and ECHO ordered as well. Patient continues to be somnolent, has some nausea. denies pain. Urine sent, patient is voiding dark/raul/ blood tinged
urine.
[2024-07-08 14:07] LABS: Body Fluid Mononuclear 87.1 %; Body Fluid Polymorphonuclear 12.9 %; Body Fluid WBC 31 /CUMM
[2024-07-08 14:08] LABS: Body Fluid Second Tech CS
[2024-07-08 14:17] LABS: Body Fluid Albumin < 1.0 g/dl; Body Fluid Protein < 2.0 g/dl
[2024-07-08] MEDS: SODIUM BICARBONATE 1100 MEQ IV (14:27)
[2024-07-08] MEDS: FOLVITE 50.2 MG IV (14:38)
[2024-07-08 14:59] LABS: Lactic Acid 2.7 mmol/L (0.7-2.0)
[2024-07-08 15:23] LABS: Blood Urea Nitrogen 3 mg/dl (7-17); Calcium 6.1 mg/dl (8.4-10.2); Carbon Dioxide 16 mmol/L (22-30); Chloride 102 mmol/L (98-107); Estimated Creatinine Clearance 80 ml/min; Glucose 165 mg/dl (70-99); Potassium 3.8 mmol/L (3.5-5.1); Sodium 130 mmol/L (135-145); eGFR > 60.00
--- NOTE | 2024-07-08 15:27 | CM ---
CM following re: discharge planning.
Reviewed pt's chart, met with pt.
Pt is a 54 year old female, admitted with primary dx of GI bleed.
Pt reports she lives with 2SH, 1 step to enter. 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
CM consult for substance abuse counseling noted. Pt referred to [facility].
Pharmacy: [address].
D/C plan: home with anticipated no needs. [facility] following.
CM will follow with discharge plan updates as hospitalization progresses
[2024-07-08] MEDS: CALCIUM GLUCONATE 100 IV (15:39)
--- NOTE | 2024-07-08 15:45 | PTCARENOTE ---
Patient MSAS is still low, states she does not have an alcohol problem. Is refusing PO phenobarb. Notified Dr. Yin, no new orders at this time. physician aware. Also asked for psych consult. patient has daugher Bernice at bedside. Daughter
states that she went to rehab in April, that patient has been very depressed and not left her room for past two weeks after of patient's father. Patient has minimal family support at home per daughter. Case management made aware as well.
[2024-07-08] MEDS: LUMINAL PO ×2 (15:46→21:28)
--- NOTE | 2024-07-08 16:31 | W.PN.UPDATE ---
Update Note
Progress Note Update
PVT per doppler US. With ongoing w/u for GIB will defer AC until Hgb stable and advised by GI to be started on blood thinner
[2024-07-08] MEDS: STERILE WATER FOR INJECTION 10 ML IV (17:05)
[2024-07-08] MEDS: ROCEPHIN 1000 MG IV (17:05)
[2024-07-08 17:43] LABS: Glucose - Point of Care 200 mg/dl (70-99)
[2024-07-08 19:43] LABS: Hematocrit 24.1 % (37.0-47.0); Hemoglobin 8.5 g/dL (12.0-16.0)
[2024-07-08 19:52] LABS: Lactic Acid 1.8 mmol/L (0.7-2.0)
[2024-07-08 19:54] LABS: Blood Urea Nitrogen 4 mg/dl (7-17); Calcium 7.6 mg/dl (8.4-10.2); Carbon Dioxide 24 mmol/L (22-30); Chloride 96 mmol/L (98-107); Estimated Creatinine Clearance 80 ml/min; Glucose 185 mg/dl (70-99); Sodium 128 mmol/L (135-145); eGFR > 60.00
--- NOTE | 2024-07-08 20:00 | PTCARENOTE ---
on assessment pt drowsy but AAOx3, denies pain at this time, SR/ST on the monitor, RA 94%, NPO, refusing all p.o mediations, incontinent, bed alarm on and call julian in reach
--- NOTE | 2024-07-08 22:35 | PTCARENOTE ---
1900 labs collected and resulted, floor MINING TECHNICIAN aware
2199 phenobarb taper p.o pt refused, MINING TECHNICIAN made aware
bed alarm on and call julian in reach
[2024-07-08] MEDS: SODIUM BICARBONATE IV (23:17)
[2024-07-08] MEDS: D5/0.45%NACL 1000 IV (23:19)
[2024-07-09] VITALS (31 sets, daily range): BP systolic 81–112; BP diastolic 63–92; BMI 21.1
[2024-07-09 00:23] LABS: Glucose - Point of Care 201 mg/dl (70-99)
[2024-07-09] MEDS: PROTONIX 100 IV ×3 (02:31→23:47)
[2024-07-09 03:12] LABS: Blood Urea Nitrogen 5 mg/dl (7-17); Calcium 7.5 mg/dl (8.4-10.2); Carbon Dioxide 24 mmol/L (22-30); Chloride 99 mmol/L (98-107); Estimated Creatinine Clearance 80 ml/min; Glucose 172 mg/dl (70-99); Potassium 3.5 mmol/L (3.5-5.1); Sodium 130 mmol/L (135-145); eGFR > 60.00
[2024-07-09 05:32] LABS: Glucose - Point of Care 194 mg/dl (70-99)
--- NOTE | 2024-07-09 06:04 | W.PN.GI.CBS2 ---
Today's Communication / Plan
-
No signs of recurrent GI bleeding, concern for impeding EtOH withdrawal. Will consider colonoscopy this admission pending clinical course. If rebleeding, would obtain CTA in attempts of localization over weekend. Continue ongoing supportive care as
below.
Assessment / Plan
-
Ms Garcia is a 54 year old female with history of chronic alcohol abuse presenting with rectal bleeding and complaints of increasing abdominal distension. She denies abdominal pain, nausea, vomiting or fevers/chills. She reported seeing both bright
red blood and dark blood. Now presenting with melena. Labs showing a macrocytic anemia with hemoglobin of 9.5, MCV 111.6, WBC 10.4, platelets 236. Na 129, K 4.4, CO2 18, BUN 5, creatinine 0.5. LFTs: total bilirubin 2.7, AST 210, ALT 46, alk phos
310, albumin 3.2 and PT 18.9, INR 1.53. Blood alcohol 369. CT showed diffuse intraperitoneal ascites and nodular contour of the liver, suggestive of cirrhosis; without evidence of active GI bleeding. Rectal examination in the ER showed melena and
heme positive. Patient was hypotensive, with BP as low as 73/49 but improved now. She did receive 1 unit PRBCs. Lactic acid elevated today at 4.5, patient has been afebrile and HD-stable.
#Acute Blood Loss Anemia
#Heme (+) Dark Brown Stools
#Previous Rectal Bleeding
CTA on admission (-) for any active GI bleeding. S/p eventual EGD on 07/08 given her anemia and bloody stools with a normal esophagus without EV, only noting PHG and multiple gastric erosions with one erosion with active oozing in gastric body s/p
two hemoclips for hemostasis, normal duodenum. Unclear etiology and possibly diverticular versus AVMs versus bleeding polyp/mass versus rectal varices (doubt). Although few bleeding erosions, not source of GIB and would benefit from an eventual
colonoscopy as no prior colonoscopy in the past.
Recommendations:
- Continue CLD today
- Continue IV PPI gtt, can transition to IV PPI 40 mg BiD tomorrow given bleeding gastric erosions
- Trend Hgb with serial CBC, transfuse for goal Hgb > 7.0 given hx of cirrhosis
- Continue empiric IV abx given bleeding in upper GI tract with IV Ceftriaxone
- Would benefit from a colonoscopy however concern for impending withdrawal and would defer prepping at this time. Would consider next week if patient is amenable
- If recurrent large volume hematochezia, would repeat stat CTA in attempts of localization and consult IR if (+)
#Decompensated EtOH Cirrhosis
#Etoh Abuse
New diagnosis and patient denies following with a Arts Education Teacher/Estate Attorney. Unclear if she has ever had a full prior serologic in the past. Long standing history of chronic alcohol use. Decompensations include ascites but without any evidence
of HE, EV/GV or other known decompensations. Recent MRI 06/2024 with mild cirrhotic liver morphology and ascites (-) for SBP.
Recommendations:
- Trend daily MELD 3.0 labs
- S/p recent IR guided paracentesis with (-) 2 L removed, (-) SBP
- Will check viral hepatitis serologies for completion
- Continue IV abx given GIB
- Hold on starting diuretics given GIB
- Low threshold to start lactulose and/or Rifaximin if concern for developing HE given GIB
- Previous c/f possible PVT, however per Radiology based on CTA with patent HV and PV. Could consider MRV, but favor holding off given CTA findings
- Regardless, would still hold a/c given her GIB as above
- Needs eventual outpatient f/u with Hepatology for further evaluation of cirrhosis and consideration of eventual MRI with Elastography
- Continue MVI, folic acid, thiamine. Monitor for signs of impending EtOH withdrawal
- Avoidance of all NSAIDs
Discussed with primary internal medicine team. GI will continue to follow.
Subjective
Subjective
Date of Service: July 09, 2024
- S/p EGD (anemia, cirrhosis w/ suspected EV, EtOH Abuse) 07/08/24: Normal esophagus without EV, PHG, multiple gastric erosions with one erosion with active oozing in gastric body s/p two hemoclips for hemostasis, normal duodenum
- Hgb remains stable 8.6 -> 8.5
- Remains on IV Protonix, tachycardic but remains HD-stable
- US Dopplers with c/f possible thrombosis as no flow in PV, however patent vasculature on prior CTA 07/08/24 without any evidence of HV or PVT
- S/p IR guided paracentesis with (-) 2 L and (-) for SBP
Resting comfortably, somewhat tremulous this AM and concern for impending withdrawal. Denies any rectal bleeding or bloody stools. No other abdominal pain, nausea or vomiting. She has never had a colonoscopy and prefers to avoid this. Otherwise, she
denies any other fevers, chills or other constitutional symptoms.
Objective
Data Reviewed
Laboratory Data:
Laboratory Results
PT 19.0 Sec (11.4-14.6) H 07/08/24 02:50
PT Cancelled 07/08/24 02:50
INR 1.54 07/08/24 02:50
INR Cancelled 07/08/24 02:50
APTT 34.0 Sec (23.4-35.0) 07/07/24 21:16
Phosphorus 3.7 mg/dl (2.5-4.5) 07/08/24 08:10
Magnesium 1.6 mg/dl (1.6-2.3) 07/08/24 08:10
Total Bilirubin 2.8 mg/dl (0.2-1.3) H 07/08/24 08:10
AST 131 U/L (14-36) H 07/08/24 08:10
ALT 33 U/L (0-35) 07/08/24 08:10
Alkaline Phosphatase 187 U/L (38-126) H 07/08/24 08:10
Vital Signs and I&O:
Vital Signs
Temp Pulse Resp BP Pulse Ox
98.4 F 104 19 97/70 95
07/09/24 03:05 07/09/24 05:00 07/09/24 05:00 07/09/24 05:00 07/09/24 05:50
I&O
07/07/24 07/08/24 07/09/24
06:59 06:59 06:59
Intake Total 658.5 / 785.2 2605.2 / 2605.2
Output Total 200 / 200
Balance 658.5 / 785.2 2405.2 / 2405.2
Physical Exam
Physical Exam
HEENT: Anicteric
Cardiology: Other (Tachycardic on tele)
Pulmonary: Other (Normal WOB)
GI: Soft, Distended (Mild distension) and Non Tender
Extremities: No Edema
Neuro: Non Focal
--- NOTE | 2024-07-09 06:26 | PTCARENOTE ---
ABD noted to be more distended this AM, floor Color Coater made aware, no new orders at this time, pt bladder scanned for 394cc, ABD slightly tender to touch
[2024-07-09 06:50] LABS: % Basophils 0.5 % (0-2); % Eosinophils 0.3 % (0-6); % Immature Granulocytes 1.1 % (0-0.5); % Lymphocytes 12.4 % (20.5-51.1); % Monocytes 5.4 % (1.7-9.3); % Neutrophils 80.3 % (42.2-75.2); Absolute Immature Granulocytes 0.1 10^3/uL (0-0.05); Absolute Lymphocytes 1.1 10^3/uL (1.2-3.4); Absolute Monocytes 0.5 10^3/uL (0.1-0.6); Absolute Neutrophils 7.1 10^3/uL (1.4-6.5); Hematocrit 25.5 % (37.0-47.0); Hemoglobin 9.1 g/dL (12.0-16.0); Mean Corp Hgb Conc. 35.7 g/dL (33.0-37.0); Mean Corpuscular Hgb 36.7 pg (27.0-31.0); Mean Corpuscular Volume 102.8 fL (81.0-99.0); Mean Platelet Volume 9.6 fL (7.4-10.4); Nucleated Red Blood Cells % 0 %; Platelet Count 147 10^3/uL (130-400); Red Blood Cell Count 2.48 10^6/uL (4.20-5.40); Red Cell Dist. Width 21.2 % (11.5-14.5); White Blood Cell Count 8.9 10^3/uL (4.8-10.8)
[2024-07-09 07:00] LABS: ALT (SGPT) 33 U/L (0-35); AST (SGOT) 116 U/L (14-36); Albumin 2.2 g/dl (3.5-5.0); Alkaline Phosphatase 190 U/L (38-126); Blood Urea Nitrogen 5 mg/dl (7-17); Calcium 7.5 mg/dl (8.4-10.2); Carbon Dioxide 25 mmol/L (22-30); Chloride 99 mmol/L (98-107); Estimated Creatinine Clearance 80 ml/min; Glucose 174 mg/dl (70-99); Potassium 3.5 mmol/L (3.5-5.1); Sodium 129 mmol/L (135-145); Total Bilirubin 2.5 mg/dl (0.2-1.3); Total Protein 5.2 g/dl (6.3-8.2); eGFR > 60.00
[2024-07-09] MEDS: FOLVITE 1 MG PO (08:24)
[2024-07-09] MEDS: ProAmatine 2.5 MG PO ×2 (08:24→13:31)
[2024-07-09] MEDS: THIAMINE INJECTION 200 MG IV ×2 (08:24→20:00)
[2024-07-09] MEDS: D5/0.45%NACL 1000 IV (08:25)
[2024-07-09] MEDS: LUMINAL 97.2 MG PO ×2 (08:25→17:16)
--- NOTE | 2024-07-09 08:37 | PTCARENOTE ---
Received pt in distress. She is having difficulty urinating. States when she bears down she has abdominal pain. She was bladder scanned for 427ml's. Pt is refusing to get OOB and take her PO medications then asking when is she going home. She was
informed that she needs to be able to take her medications, ambulate, void on her own and tolerate solid foods. Dr. Yin & Dr. Dockery notified via TT. Supportive care provided to her. I expressed my concern for her symptoms of alcohol withdrawal
and that they will worsen throughout the day. Poor inspiratory effort. 2 liters nasal cannula 95%, RA 91%. Dim breath sounds in the bases. Hyperactive BSX4. Ascites. Safe environment maintained.
--- NOTE | 2024-07-09 10:00 | W.PN.UPDATE ---
Update Note
Progress Note Update
I tried to see the patient but she does not want to be seen by psychiatry stating she is ' not up to it '.
I did tell her we would see her should she change her mind.
Will F/U upon request.
--- NOTE | 2024-07-09 10:45 | PTCARENOTE ---
Dr. Yin notified only 150ml's tea colored urine with sediment drained.
[2024-07-09] MEDS: ATIVAN 1 MG PO (11:51)
--- NOTE | 2024-07-09 12:59 | PTCARENOTE ---
and her daughter are at the bedside. IVF & Protonix infusing as ordered. Safe environment maintained.
[2024-07-09 13:00] LABS: Osmolality Urine 529 mOsm/kg (300-900)
--- NOTE | 2024-07-09 14:39 | W.PN.HOSP.TC ---
Today's Communication/Plan
-
follow labs in AM
cont manage for withdrawal
CT chest
cont Rocephin pending Ucx
Assessment / Plan
Assessment / Plan
54yo F with no reported PMHx, not visiting doctors, alcohol abuse came with episode of bloody stool. She had similar before but did not see doctors for it. Also with elevated alcohol level managed for alcohol withdrawal. Found mild liver cirrhosis
with severe fatty infiltration, EGD with Multiple erosions, one with active oozing were found in the gastric body. s/p paracentesis on 07/08/24 - 2L removed, Cx neg, no SBP by criteria, transudate 2/2 liver disease (portal HTN). Also possible UTI.
Due to concern for depression without SI - psychiatry called, but patient declined talking to them. Enlarged aortic root and SIADH - so CT chest reasonable
A/P:
#Acute blood loss anemia 2/2 hematochezia
CTA on admission without active bleeding and no hemodynamically significant stenosis of mesenteric arteries
Serial H&H, transfuse as needed
PPI
GI consult: Multiple erosions, one with active oozing were found in the gastric body. For hemostasis, two hemostatic clips were successfully placed. There was no bleeding at the end of the procedure.
Avoid antiplatelets, anticoag and NSAIDs
Ascites with GIB - Ceftriaxone for SBP ppx
#Alcohol abuse with impending withdrawal
MSAS, watch for DT
Thiamine/FOlate
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
Phenobarb taper
#Lactic acidosis
possibly 2/2 NO-induced hypotension with cirrhosis and chronic alcohol use
resolved
#Abdominal distension with ascites non-hemorrhagic appearing on CT
concern for alcoholic liver disease with radiographic cirrhosis
abdomen non-tender
s/p paracentesis on 07/08/24 - 2L removed, Cx neg, no SBP by criteria, transudate 2/2 liver disease (portal HTN)
#Hypoglycemia
2/2 poor oral intake
resolved
#hyponatremia
2/2 alcohol consumption most likely
UOsm elevated
#Concern for depression
Psych consult: patient declined
#Subsegmental atelectasis
Incentive spirometry
#Bladder wall thickening 2/2 UTI
Ceftriaxone pending Ucx
outpatient urology for possible cystoscopy
#Portal flow not confirmed on US
Questionable findings - not clear if present after review of Doppler and CTA with radiology
Patient was not able to tolerate MRA
#hypocalcemia
replete and follow electrolytes
#Bilirubinemia
#Transaminitis
#Elevated alk.phos
2/2 liver cirrhosis with fatty liver infiltration on MRI
No overt signs of cholecystitis on imaging, most likely elevation 2/2 alcohol, liver cirrhosis
follow LFT
hepatitis panel neg
#Enlarged aortic root on XR
Echo: Normal biventricular size and systolic function without regional wall motion abnormality. Normal diastolic function. No significant valvular disease
CT chest - also will be indicated with SIADH
DVT ppx SCDs
Full code
I have spent at least 57min reviewing chart, test results, communication with consultants and providing direct patient care
Anticipated Discharge: > 48 hours
Subjective/Interval History
-
Date of Service: July 09, 2024
Objective Data
-
Labs:
Laboratory Results
07/09/24 07/09/24 07/09/24
02:36 05:35 06:16
WBC Cancelled 8.9
Hgb Cancelled 9.1 L
Hct Cancelled 25.5 L
Plt Count Cancelled 147
Sodium 130 L Cancelled
Potassium 3.5 Cancelled
Chloride 99 Cancelled
Carbon Dioxide 24 Cancelled
BUN 5 L Cancelled
Creatinine 0.5 L Cancelled
Glucose 172 H Cancelled
Calcium 7.5 L Cancelled
Total Bilirubin Cancelled
AST Cancelled
ALT Cancelled
Alkaline Phosphatase Cancelled
07/09/24 07/09/24 07/09/24
06:24 12:00 18:00
WBC
Hgb
Hct
Plt Count
Sodium 129 L Cancelled Cancelled
Potassium 3.5 Cancelled Cancelled
Chloride 99 Cancelled Cancelled
Carbon Dioxide 25 Cancelled Cancelled
BUN 5 L Cancelled Cancelled
Creatinine 0.5 L Cancelled Cancelled
Glucose 174 H Cancelled Cancelled
Calcium 7.5 L Cancelled Cancelled
Total Bilirubin 2.5 H
AST 116 H
ALT 33
Alkaline Phosphatase 190 H
Vital Signs:
Vital Signs
Temp Pulse Resp BP Pulse Ox
99.3 F 106 17 110/83 97
07/09/24 11:05 07/09/24 08:24 07/09/24 08:00 07/09/24 08:24 07/09/24 08:00
I&O
07/08/24 07/09/24 07/10/24
06:59 06:59 06:59
Intake Total 658.5 / 785.2 2715.2 / 2825.2 660 / 660
Output Total 200 / 200 150 / 150
Balance 658.5 / 785.2 2515.2 / 2625.2 510 / 510
Review of Systems
-
History Source: Patient
All other systems: Reviewed and negative
Physical Exam
-
General: Comfortable
HEENT: Normocephalic
Cardiac: Regular Rhythm
GI: Soft, Nontender and Nondistended
Skin: Warm
Neuro: Awake, Alert, Oriented and AO x 3
Psych: Calm
--- NOTE | 2024-07-09 15:54 | CM ---
CM following re: discharge planning.
Reviewed pt's chart, met with pt and pt's stepdaughter Bernice. Pt was sleeping.
Per daughter, pt was placed to inpatient [facility] rehab last year by JAYLAN and pt was there only 7 days and she had to come home to care for her mother. Per Bernice pt attended IOP at [facility] and AA meetings. Per Bernice, pt most likely will be interested
to go to inpatient D&A rehab or she might thinks mindfully to stop drinking.
JAYLAN following.
D/C plan: Inpatient vs outpatient D&A rehab.
CM will follow with discharge plan updates as hospitalization progresses
[2024-07-09] MEDS: ROCEPHIN 1000 MG IV (17:17)
[2024-07-09] MEDS: STERILE WATER FOR INJECTION 10 ML IV (17:17)
--- NOTE | 2024-07-09 18:00 | PTCARENOTE ---
s/p CT scan. She was uncooperative and kept moving and would not keep her arms in place despite informing her of the importance of remaining still. Upon return she was provided PM care and dinner ordered. She is still c/o right sided abdominal pain
intermittently.
.
[2024-07-10] VITALS (21 sets, daily range): BP systolic 91–122; BP diastolic 70–96; BMI 21.4
--- NOTE | 2024-07-10 | PTCARENOTE ---
rec`d pt at 0000, pt resting and drowsy. AAOx3. uncooperative with medications. SR/ST on monitor. RA. Protonix gtt continued. PIVs flushed and patent. call julian in reach, safe environment maintained.
[2024-07-10] MEDS: LUMINAL PO ×3 (00:30→09:02)
[2024-07-10 04:22] LABS: % Basophils 0.5 % (0-2); % Eosinophils 0.8 % (0-6); % Immature Granulocytes 1.1 % (0-0.5); % Lymphocytes 15.2 % (20.5-51.1); % Monocytes 4.9 % (1.7-9.3); % Neutrophils 77.5 % (42.2-75.2); Absolute Eosinophils 0.1 10^3/uL (0-0.7); Absolute Immature Granulocytes 0.1 10^3/uL (0-0.05); Absolute Lymphocytes 1.3 10^3/uL (1.2-3.4); Absolute Monocytes 0.4 10^3/uL (0.1-0.6); Absolute Neutrophils 6.5 10^3/uL (1.4-6.5); Hematocrit 23.7 % (37.0-47.0); Hemoglobin 8.5 g/dL (12.0-16.0); Mean Corp Hgb Conc. 35.9 g/dL (33.0-37.0); Mean Corpuscular Hgb 36.5 pg (27.0-31.0); Mean Corpuscular Volume 101.7 fL (81.0-99.0); Nucleated Red Blood Cells % 0 %; Platelet Count 133 10^3/uL (130-400); Red Blood Cell Count 2.33 10^6/uL (4.20-5.40); Red Cell Dist. Width 19.7 % (11.5-14.5); White Blood Cell Count 8.3 10^3/uL (4.8-10.8)
[2024-07-10 05:16] LABS: ALT (SGPT) 29 U/L (0-35); AST (SGOT) 90 U/L (14-36); Albumin 1.8 g/dl (3.5-5.0); Alkaline Phosphatase 168 U/L (38-126); Blood Urea Nitrogen 5 mg/dl (7-17); Calcium 7.6 mg/dl (8.4-10.2); Carbon Dioxide 23 mmol/L (22-30); Chloride 99 mmol/L (98-107); Estimated Creatinine Clearance 80 ml/min; Glucose 112 mg/dl (70-99); Potassium 3.2 mmol/L (3.5-5.1); Sodium 127 mmol/L (135-145); Total Protein 4.9 g/dl (6.3-8.2); eGFR > 60.00
[2024-07-10] MEDS: KCL 40 MEQ PO (06:07)
--- NOTE | 2024-07-10 07:40 | PTCARENOTE ---
Assumed care 07:00 Patient in bed. VS 98.0(po ) SR 96; RR 22 BP 104/83 (MAP 82) on RA. Abdominal pain and lower back pain 5/10 pain scale level
Clear liquid diet call julian within reach
[2024-07-10] MEDS: PROTONIX 100 IV (08:47)
[2024-07-10] MEDS: FOLVITE 1 MG PO (08:53)
[2024-07-10] MEDS: THIAMINE INJECTION 200 MG IV ×2 (08:53→20:22)
--- NOTE | 2024-07-10 10:41 | W.CON.NEPH ---
Consultation
-
Date/Time Consultation Requested: 07/10/24 0613
Date/Time Consultation Performed: 1045
Requesting Provider: Vinay Cr
Performing Provider: Rosalina Yuen
Reason for Consultation: hyponatremia
Medical History
-
Chief Complaint: blood per rectum
History of Present Illness:
54-year-old female with past medical history that is unknown but describes history of alcohol use presenting to the emergency department with bloody bowel movement on 07/07. noted Ofelia and hypotensive and had 1 unit of PRBC. She is now diagnosed
with cirrhosis, s/p paracentesis of 2lit. She had EGD on 07/08 no active bleeding but portal HTN and gastric erosions noted on PPI gtt. She also had significant met acidosis fromLa tsering and improved with bicarb IVF, has been off since 07/09. Since
admit her sodium has been 128-130 but today at 127 hence nephrology consulted. Her last sodium in 04/2023 was 130 suspecting chronic hyponatremia. her Bps are better now but on low end of normal range. Hb at 8.5 stable. She offers abd distension for
2weeks and loss of wt, details are not clear from pt. No CP or sob. No abd pain. no n/v but reports poor appetite and not eating well. currently on clear liquid diet. Notices decreased UOP for same reason. But no dysuria. She feels drowsy. No active
DT refusing Phenobarbital.
Past Medical History
ETOH use
Social History
Tobacco: Smoker (1/2 PPD)
Alcohol: Daily (3-5 glasses )
Drug: None
Personal:
Living: With Family
Employment: Not Employed
Family History
Family History: Not Pertinent
Allergies / Home Medications
Allergy/AdvReac Type Severity Reaction Status Date / Time
No Known Allergies Allergy Verified 07/07/24 20:06
�Medication �Instructions �Recorded �Confirmed �Type
No Meds [No Current Medications] 07/07/24 07/07/24 History
Review of Systems
-
All other systems: Negative unless noted
Physical Exam
Vital Signs
Vital Signs
Temp Pulse Resp BP Pulse Ox
98.0 F 85 22 109/85 92
07/10/24 07:51 07/10/24 05:15 07/10/24 05:15 07/10/24 05:00 07/10/24 00:00
Lab Results
WBC 8.3 10^3/uL (4.8-10.8) 07/10/24 04:06
RBC 2.33 10^6/uL (4.20-5.40) L 07/10/24 04:06
Hgb 8.5 g/dL (12.0-16.0) L 07/10/24 04:06
Hct 23.7 % (37.0-47.0) L 07/10/24 04:06
Plt Count 133 10^3/uL (130-400) 07/10/24 04:06
Sodium 127 mmol/L (135-145) L 07/10/24 04:06
Potassium 3.2 mmol/L (3.5-5.1) L 07/10/24 04:06
Chloride 99 mmol/L (98-107) 07/10/24 04:06
Carbon Dioxide 23 mmol/L (22-30) 07/10/24 04:06
BUN 5 mg/dl (7-17) L 07/10/24 04:06
Creatinine 0.5 mg/dL (0.6-1.0) L 07/10/24 04:06
eGFR > 60.00 07/10/24 04:06
Glucose 112 mg/dl (70-99) H 07/10/24 04:06
Calcium 7.6 mg/dl (8.4-10.2) L 07/10/24 04:06
Phosphorus 3.7 mg/dl (2.5-4.5) 07/08/24 08:10
Albumin 1.8 g/dl (3.5-5.0) L 07/10/24 04:06
Physical Exam
General: Awake, Alert, Oriented, AOx3, No Distress and Nontoxic
HEENT: EOMI, Conjunctivae Clear, Neck Supple and No JVD
Respiratory: Clear, Normal Excursion and Nonlabored Respirations
Cardiac: S1/S2 and Regular Rate/Rhythm
Breast: Deferred by me
Abdomen: Soft, Nontender and Other (distended)
Musculoskeletal: No Cyanosis and No Edema
Skin: No Rash
Neuro: Nonfocal/Grossly Intact
Psych: Appropriate
Data Reviewed
-
Radiology: Report Reviewed by me
Labs: Labs Reviewed by me and Discussed with Patient
Assessment/Plan
-
IMP:
Hypoantremia
Hypokalemia
Acute blood loss anemia 2/2 hematochezia
Alcohol abuse with impending withdrawal
Met acidosis with Lactic acidosis-resolved
alcoholic liver disease with radiographic cirrhosis
s/p paracentesis on 07/08/24 - 2L removed, Cx neg, no SBP by criteria, transudate 2/2 liver disease (portal HTN)
Concern for depression
Subsegmental atelectasis
UTI
hypocalcemia
Bilirubinemia
Transaminitis
Hypoalbuminemia
Plan:
A/w rectal bleeding, new diagnosis of ETOH cirrhosis
Hyponatremia-U osmo high at 529, suggest prerenal-po intake is poor and also liver disease
would maintain FR, check TSH and cortisol
replace k
would try NS , may need HTS if worsens, recheck at 1700
BP are soft with out meds
corrected celia for alb is normal
follow h/h on PPI gtt
d/w pt and nursing
--- NOTE | 2024-07-10 10:41 | W.PN.GI.CBS2 ---
Today's Communication / Plan
-
D/w Radiology and patent vasculature on recent CTA. Still declining colonoscopy this admission. Ultimately, would benefit from EtOH rehab and strict EtOH cessation in going forward but still declining outpatient follow-up and previous Psych eval.
See rest of care as outlined below. GI will sign-off, please call back with any questions or concerns.
Assessment / Plan
-
Ms Garcia is a 54 year old female with history of chronic alcohol abuse presenting with rectal bleeding and complaints of increasing abdominal distension. She denies abdominal pain, nausea, vomiting or fevers/chills. She reported seeing both bright
red blood and dark blood. Now presenting with melena. Labs showing a macrocytic anemia with hemoglobin of 9.5, MCV 111.6, WBC 10.4, platelets 236. Na 129, K 4.4, CO2 18, BUN 5, creatinine 0.5. LFTs: total bilirubin 2.7, AST 210, ALT 46, alk phos
310, albumin 3.2 and PT 18.9, INR 1.53. Blood alcohol 369. CT showed diffuse intraperitoneal ascites and nodular contour of the liver, suggestive of cirrhosis; without evidence of active GI bleeding. Rectal examination in the ER showed melena and
heme positive stool along with alcohol intoxication and imaging concerning for cirrhosis.
#Acute Blood Loss Anemia
#Heme (+) Dark Brown Stools
#Previous Rectal Bleeding
CTA on admission (-) for any active GI bleeding. S/p eventual EGD on 07/08 given her anemia and bloody stools with a normal esophagus without EV, only noting PHG and multiple gastric erosions with one erosion with active oozing in gastric body s/p
two hemoclips for hemostasis, normal duodenum. Unclear etiology and possibly diverticular versus AVMs versus bleeding polyp/mass versus rectal varices (doubt). Although few bleeding erosions, not source of GIB and would benefit from an eventual
colonoscopy as no prior colonoscopy in the past.
Recommendations:
- May advance diet as tolerated
- IV PPI 40 mg BiD while inpatient
- Trend Hgb with serial CBC, transfuse for goal Hgb > 7.0 given hx of cirrhosis
- Continue empiric IV abx given bleeding in upper GI tract with IV Ceftriaxone for 7-day course
- Patient would benefit from a colonoscopy given her previous heme (+) stools and rectal bleeding however concern for impending withdrawal and would defer prepping at this time. However, patient continues to decline pursuing a colonoscopy this
admission despite extensive counseling and refusing further work-up. Thus, would defer any plans for a colonoscopy given patient's refusal
- If recurrent large volume hematochezia while inpatient, would repeat stat CTA in attempts of localization and consult IR if (+)
#Decompensated EtOH Cirrhosis
#Alcohol Associated Liver Disease
#Etoh Abuse #EtOH Withdrawal
New diagnosis and patient denies following with a Wagon Driller/Posting Specialist in the past. Long standing history of chronic alcohol use along with her pattern of LFTs and macrocytosis. Recent MRI 06/2024 with mild cirrhotic liver morphology and
ascites (-) for SBP with fluid analysis consistent with high SAAG, low protein in keeping with portal-HTN from likely cirrhosis. Labs also suggest degree of synthetic dysfunction as well given her elevated INR, hypoalbuminemia and borderline
thrombocytopenia. Decompensations include ascites but without any evidence of HE, EV/GV, HCC or other known decompensations.
Recommendations:
- Trend daily MELD 3.0 labs while inpatient
- S/p recent IR guided paracentesis on 07/08 with (-) 2 L removed, (-) SBP and high SAAG, low protein consistent with portal-HTN
- Viral hepatitis serologies (-)
- Continue IV abx given GIB as above for 7-day course
- Would defer starting diuretics at this time given her GIB, if recurrent ascites this admission would start lasix 20 mg and spironolactone 50 mg once daily
- Low threshold to start lactulose and/or Rifaximin if concern for developing HE given GIB this admission
- Will obtain AFP
- Discussed with Radiology this AM, CTA was definitive and r/o PVT and patent vasculature of both PV and HV. Thus, would defer further repeat imaging
- Needs eventual outpatient f/u with Hepatology for further evaluation of cirrhosis and consideration of eventual MRI with Elastography. Will coordinate f/u as an outpatient with our office
- Continue MVI, folic acid, thiamine. Monitor for signs of impending EtOH withdrawal
- Recommend Social Work/Behavioral Health as well as patient would benefit from Rehab as outpatient. Of note, she also declined psych eval on 07/09
- Avoidance of all NSAIDs
- Rest of care as per primary team
Discussed with primary internal medicine team this AM. GI will sign-off, please call back with any questions or concerns.
Subjective
Subjective
Date of Service: July 10, 2024
- Went for Abdomen MRV on 07/09 however, nondiagnostic as patient declined additional imaging
- Declining medications as well noted by nursing overnight
- Otherwise, no acute events overnight and still without any evidence of overt GI bleeding since admission
Patient resting comfortably, although endorsing some mild lower back pain. Appears to be in withdrawal but conversant without signs of HE. Denies any abdominal pain or other melena, bloody stools or rectal bleeding. No reported bloody BMs by
nursing. Again, discussed pursuing a potential colonoscopy this admission given her previous concern for rectal bleeding however still declining and not interested in pursuing further testing. She does not follow with a Posting Specialist or
Wagon Driller, notes longstanding drinking for several years.
Objective
Data Reviewed
Laboratory Data:
Laboratory Results
07/10/24 04:06
07/10/24 04:06
Laboratory Results
PT 19.0 Sec (11.4-14.6) H 07/08/24 02:50
PT Cancelled 07/08/24 02:50
INR 1.54 07/08/24 02:50
INR Cancelled 07/08/24 02:50
APTT 34.0 Sec (23.4-35.0) 07/07/24 21:16
Phosphorus 3.7 mg/dl (2.5-4.5) 07/08/24 08:10
Magnesium 1.6 mg/dl (1.6-2.3) 07/08/24 08:10
Total Bilirubin 2.0 mg/dl (0.2-1.3) H 07/10/24 04:06
AST 90 U/L (14-36) H 07/10/24 04:06
ALT 29 U/L (0-35) 07/10/24 04:06
Alkaline Phosphatase 168 U/L (38-126) H 07/10/24 04:06
Vital Signs and I&O:
Vital Signs
Temp Pulse Resp BP Pulse Ox
98.0 F 85 22 109/85 92
07/10/24 07:51 07/10/24 05:15 07/10/24 05:15 07/10/24 05:00 07/10/24 00:00
I&O
07/09/24 07/10/24 07/11/24
06:59 06:59 06:59
Intake Total 2715.2 / 2825.2 1280 / 1290 180 / 180
Output Total 200 / 200 150 / 150
Balance 2515.2 / 2625.2 1130 / 1140 180 / 180
Physical Exam
Physical Exam
HEENT: Anicteric and Moist mucous membranes
Cardiology: Other (Tachycardic on tele)
Pulmonary: Other (Normal WOB on room air)
GI: Soft, Distended (Mild distension without significant ascites or fluid wave) and Non Tender
Extremities: No Edema and Warm
Neuro: Non Focal and Other (AAOx4 ; no asterixis)
[2024-07-10] MEDS: NSS 1000 IV (11:59)
--- NOTE | 2024-07-10 12:14 | W.PN.HOSP.TC ---
Today's Communication/Plan
-
transfer to tele
labs in AM
FR
PT/OT
Assessment / Plan
Assessment / Plan
54yo F with no reported PMHx, not visiting doctors, alcohol abuse came with episode of bloody stool. She had similar before but did not see doctors for it. Also with elevated alcohol level managed for alcohol withdrawal. Found mild liver cirrhosis
with severe fatty infiltration, EGD with Multiple erosions, one with active oozing were found in the gastric body. s/p paracentesis on 07/08/24 - 2L removed, Cx neg, no SBP by criteria, transudate 2/2 liver disease (portal HTN). Also possible UTI.
Due to concern for depression without SI - psychiatry called, but patient declined talking to them. Declined phenobarb, however no significant withdrawal. Also minimal hyponatremia.
A/P:
#hyponatremia
#Hypokalemia
replete and follow electrolytes
2/2 alcohol consumption and liver disease
UOsm elevated - FR
Nephrology consult
#Acute blood loss anemia 2/2 hematochezia
CTA on admission without active bleeding and no hemodynamically significant stenosis of mesenteric arteries
Serial H&H, transfuse as needed
PPI
GI consult: Multiple erosions, one with active oozing were found in the gastric body. For hemostasis, two hemostatic clips were successfully placed. There was no bleeding at the end of the procedure.
Avoid antiplatelets, anticoag and NSAIDs
Ascites with GIB - Ceftriaxone for SBP ppx
Patient declined colonoscopy
#Alcohol abuse with impending withdrawal
MSAS, watch for DT
Thiamine/FOlate
Onsite Case Manager on cessation
Phenobarb taper - patient keeps declining
#Lactic acidosis
possibly 2/2 NO-induced hypotension with cirrhosis and chronic alcohol use
resolved
#R lateral breast calcified nodularity
outpatient Mammogram advised
#Abdominal distension with ascites non-hemorrhagic appearing on CT
concern for alcoholic liver disease with radiographic cirrhosis
abdomen non-tender
s/p paracentesis on 07/08/24 - 2L removed, Cx neg, no SBP by criteria, transudate 2/2 liver disease (portal HTN)
#Hypoglycemia
2/2 poor oral intake
resolved
#Concern for depression
Psych consult: patient declined
#Subsegmental atelectasis
Incentive spirometry
#Bladder wall thickening 2/2 UTI
Ceftriaxone pending Ucx
outpatient urology for possible cystoscopy
#Portal flow not confirmed on US
Patient vasculature on CTA. As per agreement with GI and radiologist- no concern for PVT
Patient was not able to tolerate MRA
#hypocalcemia
replete and follow electrolytes
#Bilirubinemia
#Transaminitis
#Elevated alk.phos
2/2 liver cirrhosis with fatty liver infiltration on MRI
No overt signs of cholecystitis on imaging, most likely elevation 2/2 alcohol, liver cirrhosis
follow LFT
hepatitis panel neg
#Enlarged aortic root on XR
CT chest : Radiographic suggestion of widened mediastinum appears to be related to slight prominence of mediastinal fat, as well as tortuosity/uncoiling of the ascending aorta, extending to the right of midline. Ascending aorta is slightly
distended, though remains within normal limits, measuring up to 3.3 cm, without focal aneurysm. No dissection. The aortic annulus measures 2.5 cm. Sinotubular junction measuring 2.5 cm.
DVT ppx SCDs
Full code
I have spent at least 37min reviewing chart, test results, communication with consultants and providing direct patient care
Anticipated Discharge: > 48 hours
Subjective/Interval History
-
Date of Service: July 10, 2024
Objective Data
-
Labs:
Laboratory Results
07/10/24 07/10/24
04:06 17:00
WBC 8.3
Hgb 8.5 L
Hct 23.7 L
Plt Count 133
Sodium 127 L Pending
Potassium 3.2 L Pending
Chloride 99 Pending
Carbon Dioxide 23 Pending
BUN 5 L Pending
Creatinine 0.5 L Pending
Glucose 112 H Pending
Calcium 7.6 L Pending
Total Bilirubin 2.0 H
AST 90 H
ALT 29
Alkaline Phosphatase 168 H
Vital Signs:
Vital Signs
Temp Pulse Resp BP Pulse Ox
97.8 F 85 22 109/85 92
07/10/24 11:00 07/10/24 05:15 07/10/24 05:15 07/10/24 05:00 07/10/24 00:00
I&O
07/09/24 07/10/24 07/11/24
06:59 06:59 06:59
Intake Total 2715.2 / 2825.2 1280 / 1290 200 / 200
Output Total 200 / 200 150 / 150
Balance 2515.2 / 2625.2 1130 / 1140 200 / 200
Review of Systems
-
History Source: Patient
All other systems: Reviewed and negative
Physical Exam
-
General: No Apparent Distress
HEENT: Normocephalic
GI: Soft, Nontender and Nondistended
Neuro: Awake, Alert, Oriented and AO x 3; Negative Tremors
Psych: Calm
[2024-07-10 12:36] LABS: Magnesium 1.6 mg/dl (1.6-2.3)
[2024-07-10 13:07] LABS: Cortisol, Random 11.5 ug/dl; TSH 5.04 uIU/ml (0.47-4.68)
[2024-07-10] MEDS: MAGNESIUM SULFATE 50 IV (13:34)
--- NOTE | 2024-07-10 13:36 | PTCARENOTE ---
NSS 0.9% at 50/hr . Mg 2g repleted per order for Mg level of 1.6 per am labs infusing via Left FA.
VSS : 106/78 ST 102 RR 18
Mid back pain 5 out 10 pain scale . Po intake poor , encouraged
[2024-07-10] MEDS: ULTRAM 25 MG PO ×2 (14:17→23:22)
[2024-07-10 14:21] LABS: Free T4 0.97 ng/dl (0.78-2.19)
[2024-07-10 17:23] LABS: Blood Urea Nitrogen 5 mg/dl (7-17); Calcium 7.5 mg/dl (8.4-10.2); Carbon Dioxide 22 mmol/L (22-30); Chloride 99 mmol/L (98-107); Estimated Creatinine Clearance 80 ml/min; Glucose 132 mg/dl (70-99); Potassium 3.6 mmol/L (3.5-5.1); Sodium 126 mmol/L (135-145); eGFR > 60.00
[2024-07-10] MEDS: SODIUM CHLORIDE 3% 250 IV (18:05)
[2024-07-10] MEDS: ROCEPHIN 1000 MG IV (18:22)
[2024-07-10] MEDS: STERILE WATER FOR INJECTION 10 ML IV (18:23)
--- NOTE | 2024-07-10 18:36 | PTCARENOTE ---
Hyponatremia 126 3% Sodium Chloride started infusing via left FA; Sodium schedule for re-check at 22:00
[2024-07-10 19:01] LABS: Urine Sodium 10 mmol/L (30-90)
[2024-07-10] MEDS: NSS (PRESERVATIVE FREE) 10 ML IV (20:21)
[2024-07-10] MEDS: TYLENOL 650 MG PO (20:22)
[2024-07-10] MEDS: PROTONIX IV 40 MG IV (20:22)
[2024-07-10 23:41] LABS: Hemoglobin 8.9 g/dL (12.0-16.0)
[2024-07-11] VITALS (12 sets, daily range): BP systolic 91–115; BP diastolic 67–90; PULSE 103–115; BMI 21.5
[2024-07-11 04:55] LABS: % Basophils 0.7 % (0-2); % Eosinophils 1.5 % (0-6); % Immature Granulocytes 1.1 % (0-0.5); % Lymphocytes 20.6 % (20.5-51.1); % Monocytes 5.6 % (1.7-9.3); % Neutrophils 70.5 % (42.2-75.2); Absolute Basophils 0.1 10^3/uL (0-0.2); Absolute Eosinophils 0.1 10^3/uL (0-0.7); Absolute Immature Granulocytes 0.1 10^3/uL (0-0.05); Absolute Lymphocytes 1.5 10^3/uL (1.2-3.4); Absolute Monocytes 0.4 10^3/uL (0.1-0.6); Absolute Neutrophils 5.1 10^3/uL (1.4-6.5); Hematocrit 24.3 % (37.0-47.0); Hemoglobin 8.4 g/dL (12.0-16.0); Mean Corp Hgb Conc. 34.6 g/dL (33.0-37.0); Mean Corpuscular Hgb 36.1 pg (27.0-31.0); Mean Corpuscular Volume 104.3 fL (81.0-99.0); Mean Platelet Volume 10.5 fL (7.4-10.4); Nucleated Red Blood Cells % 0 %; Platelet Count 121 10^3/uL (130-400); Red Blood Cell Count 2.33 10^6/uL (4.20-5.40); Red Cell Dist. Width 19.6 % (11.5-14.5); White Blood Cell Count 7.3 10^3/uL (4.8-10.8)
[2024-07-11 06:32] LABS: Blood Urea Nitrogen 5 mg/dl (7-17); Calcium 7.5 mg/dl (8.4-10.2); Carbon Dioxide 22 mmol/L (22-30); Chloride 102 mmol/L (98-107); Estimated Creatinine Clearance 80 ml/min; Glucose 109 mg/dl (70-99); Potassium 3.5 mmol/L (3.5-5.1); Sodium 127 mmol/L (135-145); eGFR > 60.00
[2024-07-11] MEDS: NSS (PRESERVATIVE FREE) 10 ML IV ×2 (07:47→19:07)
[2024-07-11] MEDS: PROTONIX IV 40 MG IV ×2 (07:47→19:07)
[2024-07-11] MEDS: VITAMIN B1 100 MG PO ×2 (07:48→19:07)
[2024-07-11] MEDS: FOLVITE 1 MG PO (07:53)
--- NOTE | 2024-07-11 08:00 | PTCARENOTE ---
0700 patient in bed. AAO 3 mild mid-back pain 3 out 10 pain scale. Flat effect. requires encouragement with daily activities. BP 97/72 MAP 79; Normal Sinus Rhythm 78; RR 15 98%RA . Call julian within reach
--- NOTE | 2024-07-11 09:34 | W.PN.HOSP.TC ---
Addendum entered and electronically signed by Vinay Yin MD 07/11/24 11:19:
#E.coli UTI
Ceftriaxone
Original Note:
Today's Communication/Plan
-
cont FR
Nephrology to follow
PT/OT
Assessment / Plan
Assessment / Plan
54yo F with no reported PMHx, not visiting doctors, alcohol abuse came with episode of bloody stool. She had similar before but did not see doctors for it. Also with elevated alcohol level managed for alcohol withdrawal. Found mild liver cirrhosis
with severe fatty infiltration, EGD with Multiple erosions, one with active oozing were found in the gastric body. s/p paracentesis on 07/08/24 - 2L removed, Cx neg, no SBP by criteria, transudate 2/2 liver disease (portal HTN). Also possible UTI.
Due to concern for depression without SI - psychiatry called, but patient declined talking to them. Declined phenobarb, however no significant withdrawal. Also hyponatremia.
A/P:
#hyponatremia
#Hypokalemia
replete and follow electrolytes
2/2 alcohol consumption and liver disease
UOsm elevated - FR
Nephrology consult: s/p 3% saline on 07/10/24
follow BMP
#Acute blood loss anemia 2/2 hematochezia
CTA on admission without active bleeding and no hemodynamically significant stenosis of mesenteric arteries
Serial H&H, transfuse as needed
PPI
GI consult: Multiple erosions, one with active oozing were found in the gastric body. For hemostasis, two hemostatic clips were successfully placed. There was no bleeding at the end of the procedure.
Avoid antiplatelets, anticoag and NSAIDs
Ascites with GIB - Ceftriaxone for SBP ppx
Patient declined colonoscopy
#Alcohol abuse with impending withdrawal
MSAS, watch for DT
Thiamine/FOlate
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
Phenobarb taper - patient keeps declining
#Lactic acidosis
possibly 2/2 NO-induced hypotension with cirrhosis and chronic alcohol use
resolved
#R lateral breast calcified nodularity
outpatient Mammogram advised
#Abdominal distension with ascites non-hemorrhagic appearing on CT
concern for alcoholic liver disease with radiographic cirrhosis
abdomen non-tender
s/p paracentesis on 07/08/24 - 2L removed, Cx neg, no SBP by criteria, transudate 2/2 liver disease (portal HTN)
#Hypoglycemia
2/2 poor oral intake
resolved
#Concern for depression
Psych consult: patient declined
#Subsegmental atelectasis
Incentive spirometry
#Bladder wall thickening 2/2 UTI
Ceftriaxone pending Ucx
outpatient urology for possible cystoscopy
#Portal flow not confirmed on US
Patient vasculature on CTA. As per agreement with GI and radiologist- no concern for PVT
Patient was not able to tolerate MRA
#hypocalcemia
replete and follow electrolytes
#Bilirubinemia
#Transaminitis
#Elevated alk.phos
2/2 liver cirrhosis with fatty liver infiltration on MRI
No overt signs of cholecystitis on imaging, most likely elevation 2/2 alcohol, liver cirrhosis
follow LFT
hepatitis panel neg
#Enlarged aortic root on XR
CT chest : Radiographic suggestion of widened mediastinum appears to be related to slight prominence of mediastinal fat, as well as tortuosity/uncoiling of the ascending aorta, extending to the right of midline. Ascending aorta is slightly
distended, though remains within normal limits, measuring up to 3.3 cm, without focal aneurysm. No dissection. The aortic annulus measures 2.5 cm. Sinotubular junction measuring 2.5 cm.
DVT ppx SCDs
Full code
I have spent at least 37min reviewing chart, test results, communication with consultants and providing direct patient care
Anticipated Discharge: > 48 hours
Subjective/Interval History
-
Date of Service: July 11, 2024
Objective Data
-
Labs:
Laboratory Results
07/10/24 07/10/24 07/11/24
18:28 23:16 04:25
WBC 7.3
Hgb 8.9 L 8.4 L
Hct 25.0 L 24.3 L
Plt Count 121 L
Sodium Cancelled 127 L
Potassium 3.5
Chloride 102
Carbon Dioxide 22
BUN 5 L
Creatinine 0.4 L
Glucose 109 H
Calcium 7.5 L
07/11/24
06:00
WBC
Hgb
Hct
Plt Count
Sodium Cancelled
Potassium Cancelled
Chloride Cancelled
Carbon Dioxide Cancelled
BUN Cancelled
Creatinine Cancelled
Glucose Cancelled
Calcium Cancelled
Vital Signs:
Vital Signs
Temp Pulse Resp BP Pulse Ox
97.8 F 86 18 91/67 92
07/11/24 07:46 07/11/24 01:00 07/11/24 01:00 07/11/24 00:00 07/11/24 01:00
I&O
07/10/24 07/11/24 07/12/24
06:59 06:59 06:59
Intake Total 1280 / 1290 1406 / 1406
Output Total 150 / 150 200 / 200
Balance 1130 / 1140 1206 / 1206
Review of Systems
-
History Source: Patient
All other systems: Reviewed and negative
Physical Exam
-
General: No Apparent Distress
HEENT: Normocephalic
Cardiac: Regular Rhythm
GI: Soft, Nontender and Nondistended
Skin: Warm
Neuro: Awake, Alert, Oriented and AO x 3
Psych: Calm
[2024-07-11] MEDS: ULTRAM 25 MG PO ×2 (10:24→20:29)
--- NOTE | 2024-07-11 12:31 | W.PN.NEPH.PH ---
Today's Communication / Plan
-
follow labs
Assessment/Plan
-
IMP:
Hypoantremia
Hypokalemia
Acute blood loss anemia 2/2 hematochezia
Alcohol abuse with impending withdrawal
Met acidosis with Lactic acidosis-resolved
alcoholic liver disease with radiographic cirrhosis
s/p paracentesis on 07/08/24 - 2L removed, Cx neg, no SBP by criteria, transudate 2/2 liver disease (portal HTN)
Concern for depression
Subsegmental atelectasis
UTI
hypocalcemia
Bilirubinemia
Transaminitis
Hypoalbuminemia
Plan:
A/w rectal bleeding, new diagnosis of ETOH cirrhosis
Hyponatremia-U osmo high at 529, low U na suggest prerenal+ liver disease
would maintain FR, normal TSH and cortisol
s/p HTS overnight and sodium up at 127
recheck now and retry HTS if worsens
not adding salt tabs due to ascites
BP are soft with out meds
corrected celia for alb is normal
severe hypoalbuminemia-encourage solute intake
abx per primary
follow h/h
d/w pt and nursing
-
-
Date of Service: July 11, 2024
CC / HPI / ROS
-
Chief Complaint:
hyponatremia
History of Present Illness:
sodium up at 127 s/p HTS
bp remain soft
hb stable 8.4
no fever
Review of Systems:
starting eat today but poor appetite
no co or sob
mild abd discomfort
Labs
-
Labs:
WBC 7.3 10^3/uL (4.8-10.8) 07/11/24 04:25
RBC 2.33 10^6/uL (4.20-5.40) L 07/11/24 04:25
Hgb 8.4 g/dL (12.0-16.0) L 07/11/24 04:25
Hct 24.3 % (37.0-47.0) L 07/11/24 04:25
Plt Count 121 10^3/uL (130-400) L 07/11/24 04:25
Sodium Cancelled 07/11/24 06:00
Potassium Cancelled 07/11/24 06:00
Chloride Cancelled 07/11/24 06:00
Carbon Dioxide Cancelled 07/11/24 06:00
BUN Cancelled 07/11/24 06:00
Creatinine Cancelled 07/11/24 06:00
eGFR Cancelled 07/11/24 06:00
Glucose Cancelled 07/11/24 06:00
Calcium Cancelled 07/11/24 06:00
Phosphorus 3.7 mg/dl (2.5-4.5) 07/08/24 08:10
Albumin 1.8 g/dl (3.5-5.0) L 07/10/24 04:06
Physical Exam
-
Vital Signs:
Vital Signs
Temp Pulse Resp BP Pulse Ox
97.7 F 86 18 91/67 92
07/11/24 11:00 07/11/24 01:00 07/11/24 01:00 07/11/24 00:00 07/11/24 01:00
Cardiovascular:: Regular rate and rhythm
Respiratory:: Bilateral: CTA
Lung Excursion:: Normal
Abdomen:: Distended, Nontender and Soft
Extremity Edema:: None: Bilateral:
Oshea Catheter: No
[2024-07-11 13:37] LABS: Sodium 127 mmol/L (135-145)
--- NOTE | 2024-07-11 14:26 | PTCARENOTE ---
Sodium level at 12:59 127 same as previous one
Transfer this am to chair for about 4 hours; x 1 person assistance . c/o of lower back pain.
back in bed poor po intake
[2024-07-11] MEDS: ROCEPHIN 1000 MG IV (16:47)
[2024-07-11] MEDS: STERILE WATER FOR INJECTION 10 ML IV (16:50)
--- NOTE | 2024-07-11 19:05 | PTCARENOTE ---
> AAO x3 Flat effect . Requires encouragements with ADLs
> Normal Sinus Rhythm 70's BP 91/70 MaP 78;
> Lungs diminished on RA
> Abdomen with ascites Poor Po intake
> Oliguria: 100 cc whole day with burgundy color urine
call julian within reash
--- NOTE | 2024-07-11 19:28 | PTCARENOTE ---
Resumed care of pt laying in bed AAOx3 with daughter at bedside. Pt drowsy and lethargic. Pt with uneaten dinner in front of her, states she doesnt have appetite. HR in the 90's at rest 120's with activity, pt assisted to sitting position. Pt with
generalized weakness. Heart monitor removed, pt downgraded to M/S level care. POX 97% on RA. Lungs dec at bases, shallow, poor effort. + bowel, round dist abd, Acites. Pt reports back pain 5/10, refused pain medication at this time. Palpable
peripheral pulses. pale skin, Scattered abrasions on B/L LE. B/L arm INT's capped at this time. Pt repositioned per comfort. Pt refused oral hygiene as well as getting washed up at this time. Pt states ' that is my goal for tomorrow'. Will attempt
again later. Pt resting comfortably with daughter at bedside. Will continue to monitor.
[2024-07-12 05:15] VITALS: BMI 22.2
[2024-07-12 05:30] LABS: % Basophils 0.6 % (0-2); % Eosinophils 1.5 % (0-6); % Immature Granulocytes 1.1 % (0-0.5); % Lymphocytes 18.1 % (20.5-51.1); % Monocytes 8.7 % (1.7-9.3); Absolute Eosinophils 0.1 10^3/uL (0-0.7); Absolute Immature Granulocytes 0.1 10^3/uL (0-0.05); Absolute Lymphocytes 1.3 10^3/uL (1.2-3.4); Absolute Monocytes 0.6 10^3/uL (0.1-0.6); Absolute Neutrophils 5.1 10^3/uL (1.4-6.5); Hematocrit 24.6 % (37.0-47.0); Hemoglobin 8.4 g/dL (12.0-16.0); Mean Corp Hgb Conc. 34.1 g/dL (33.0-37.0); Mean Corpuscular Hgb 36.1 pg (27.0-31.0); Mean Corpuscular Volume 105.6 fL (81.0-99.0); Mean Platelet Volume 10.7 fL (7.4-10.4); Nucleated Red Blood Cells % 0.4 %; Platelet Count 102 10^3/uL (130-400); Red Blood Cell Count 2.33 10^6/uL (4.20-5.40); Red Cell Dist. Width 19.4 % (11.5-14.5); White Blood Cell Count 7.2 10^3/uL (4.8-10.8)
[2024-07-12 06:00] LABS: ALT (SGPT) 23 U/L (0-35); AST (SGOT) 82 U/L (14-36); Albumin 1.6 g/dl (3.5-5.0); Alkaline Phosphatase 170 U/L (38-126); Blood Urea Nitrogen 5 mg/dl (7-17); Calcium 6.9 mg/dl (8.4-10.2); Carbon Dioxide 23 mmol/L (22-30); Chloride 102 mmol/L (98-107); Estimated Creatinine Clearance 80 ml/min; Glucose 90 mg/dl (70-99); Potassium 3.5 mmol/L (3.5-5.1); Sodium 127 mmol/L (135-145); Total Protein 4.3 g/dl (6.3-8.2); eGFR > 60.00
--- NOTE | 2024-07-12 06:20 | W.PN.UPDATE ---
Update Note
Progress Note Update
calcium correction with 1.6 albumin =8.82 calcium.
--- NOTE | 2024-07-12 08:00 | PTCARENOTE ---
Pt rec'd from night RN, drowsy but arousable. Pt assisted oob to use bathroom, +raul urine in toilet, pericare and CHG bath provided. Pt seated up in chair, ate breakfast (cheerios and milk, soda and applesauce) and is resting comfortably. Pt with
generalized weakness, slow steady gait with RW and yemi RN assist. Pt is soft spoken but pleasant and cooperative. Took am meds with exception of Phenobarbitol. MSAS scores have been WNL >48 hours; dc'd per protocol. [employer] rep arrived at bedside,
Pt continues to decline services. VSS, safe environment continues, call julian in reach, at bedside. Psych consult again ordered by attending, now Dr. Cunha.
[2024-07-12 08:19] VITALS: BP 97/73
[2024-07-12] MEDS: PROTONIX IV 40 MG IV ×2 (08:32→20:32)
[2024-07-12] MEDS: NSS (PRESERVATIVE FREE) 10 ML IV ×2 (08:32→20:32)
[2024-07-12] MEDS: FOLVITE 1 MG PO (08:33)
[2024-07-12] MEDS: VITAMIN B1 100 MG PO ×2 (08:33→20:32)
[2024-07-12 08:39] VITALS: BP 97/73
--- NOTE | 2024-07-12 08:52 | W.PN.HOSP.TC ---
Today's Communication/Plan
-
See plan
Assessment / Plan
Assessment / Plan
Physical Exam
General: No Apparent Distress
HEENT: Normocephalic
Cardiac: S1 and S2. Regular Rhythm
GI: Soft, Nontender and Nondistended. Positive bowel sounds.
Skin: Warm. Dry.
Neuro: Awake, Alert, Oriented x3
Psych: Calm
Assessment/Plan
54yo F with no reported PMHx, not visiting doctors, alcohol abuse came with episode of bloody stool. She had similar before but did not see doctors for it. Also with elevated alcohol level managed for alcohol withdrawal. Found mild liver cirrhosis
with severe fatty infiltration, EGD with Multiple erosions, one with active oozing were found in the gastric body. s/p paracentesis on 07/08/24 - 2L removed, Cx neg, no SBP by criteria, transudate 2/2 liver disease (portal HTN). Also possible UTI.
Due to concern for depression without SI - psychiatry called, but patient declined talking to them. Declined phenobarb, however no significant withdrawal. Also hyponatremia.
#hyponatremia
#Hypokalemia
replete and follow electrolytes
2/2 alcohol consumption and liver disease
UOsm elevated - FR
Nephrology consult: s/p 3% saline on 07/10/24
No salt tablets due to ascites
follow BMP
#Acute blood loss anemia 2/2 hematochezia
CTA on admission without active bleeding and no hemodynamically significant stenosis of mesenteric arteries
Serial H&H, transfuse as needed
PPI
GI consult: Multiple erosions, one with active oozing were found in the gastric body. For hemostasis, two hemostatic clips were successfully placed. There was no bleeding at the end of the procedure.
Avoid antiplatelets, anticoag and NSAIDs
Ascites with GIB - Ceftriaxone for SBP ppx
Patient declined colonoscopy
#E.coli UTI
Ceftriaxone
#Alcohol abuse with impending withdrawal
MSAS, watch for DT
Thiamine/FOlate
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
Phenobarb taper - patient keeps declining
#Lactic acidosis
possibly 2/2 NO-induced hypotension with cirrhosis and chronic alcohol use
resolved
#R lateral breast calcified nodularity
outpatient Mammogram advised
#Abdominal distension with ascites non-hemorrhagic appearing on CT
concern for alcoholic liver disease with radiographic cirrhosis
abdomen non-tender
s/p paracentesis on 07/08/24 - 2L removed, Cx neg, no SBP by criteria, transudate 2/2 liver disease (portal HTN)
#Hypoglycemia
2/2 poor oral intake
resolved
#Concern for depression
Psych consult: patient declined
#Subsegmental atelectasis
Incentive spirometry
#Bladder wall thickening 2/2 UTI
Ceftriaxone -- urine culture with E. coli and Group G Strep
outpatient urology for possible cystoscopy
#Portal flow not confirmed on US
Patient vasculature on CTA. As per agreement with GI and radiologist- no concern for PVT
Patient was not able to tolerate MRA
#hypocalcemia
replete and follow electrolytes
#Bilirubinemia
#Transaminitis
#Elevated alk.phos
2/2 liver cirrhosis with fatty liver infiltration on MRI
No overt signs of cholecystitis on imaging, most likely elevation 2/2 alcohol, liver cirrhosis
follow LFT
hepatitis panel neg
#Enlarged aortic root on XR
CT chest : Radiographic suggestion of widened mediastinum appears to be related to slight prominence of mediastinal fat, as well as tortuosity/uncoiling of the ascending aorta, extending to the right of midline. Ascending aorta is slightly
distended, though remains within normal limits, measuring up to 3.3 cm, without focal aneurysm. No dissection. The aortic annulus measures 2.5 cm. Sinotubular junction measuring 2.5 cm.
DVT ppx SCDs
Full code
Patient does need walker and would not be safe to be discharged without it however, I understand that it will not to be delivered to her home till tomorrow. also, with patient requiring minimal assist for ambulation and elevations, family has not
yet figured out who will be home with patient to provide the necessary supervision/assistance.
Patient is in need of a walker to prevent falls due to unsteady gait.
Anticipated Discharge: Within 24 hours
Subjective/Interval History
-
Date of Service: July 12, 2024
Patient was seen and examined. She reported feeling okay, denied any new symptoms or complaints.
Objective Data
-
Labs:
Laboratory Results
07/12/24
05:06
WBC 7.2
Hgb 8.4 L
Hct 24.6 L
Plt Count 102 L
Sodium 127 L
Potassium 3.5
Chloride 102
Carbon Dioxide 23
BUN 5 L
Creatinine 0.4 L
Glucose 90
Calcium 6.9 L*
Total Bilirubin 2.0 H
AST 82 H
ALT 23
Alkaline Phosphatase 170 H
Vital Signs:
Vital Signs
Temp Pulse Resp BP Pulse Ox
97.7 F 80 12 97/73 97
07/12/24 07:04 07/12/24 08:39 07/12/24 08:39 07/12/24 08:39 07/12/24 08:39
I&O
07/11/24 07/12/24 07/13/24
06:59 06:59 06:59
Intake Total 1406 / 1406 420 / 420 120 / 120
Output Total 200 / 200 0 / 0
Balance 1206 / 1206 420 / 420 120 / 120
--- NOTE | 2024-07-12 12:01 | W.PN.UPDATE ---
Update Note
Progress Note Update
Pt is 54 yo female admitted with alcohol use and GI bleeding. Pt declined psychiatric consult after admission. Psychiatry asked to approach pt again to assess prior to discharge. Pt seen sitting up in chair, alert, oriented, in no distress.
present, repeatedly asked pt if she would like him to leave the room for pt to talk in private; pt declined. Pt denies severe depression or suicidal ideation. She states she was living with parents for a year and father ; she is
moving on now. Pt denies needing any mental health care, declines any MH services. No signs of agitation or psychosis.
Imp: Alcohol use d/o, severe
Unspecified depression
Rec: Outpatient therapy. Pt appears psychiatrically stable for discharge when medically cleared
[2024-07-12 12:37] VITALS: BP 106/73
--- NOTE | 2024-07-12 12:59 | W.PN.NEPH.PH ---
Today's Communication / Plan
-
see plan
Assessment/Plan
-
IMP:
Hypoantremia
Hypokalemia
Acute blood loss anemia 2/2 hematochezia
Alcohol abuse with impending withdrawal
Met acidosis with Lactic acidosis-resolved
alcoholic liver disease with radiographic cirrhosis
s/p paracentesis on 07/08/24 - 2L removed, Cx neg, no SBP by criteria, transudate 2/2 liver disease (portal HTN)
Concern for depression
Subsegmental atelectasis
UTI
hypocalcemia
Bilirubinemia
Transaminitis
Hypoalbuminemia
Plan:
A/w rectal bleeding, new diagnosis of ETOH cirrhosis
Hyponatremia-U osmo high at 529, low U na suggest prerenal+ liver disease
would maintain FR, normal TSH and cortisol
sodium no change at 127, start FR 48 ounces/day
not adding salt tabs due to ascites
likely benefit from low dose of lasix
BP are soft with out meds
corrected celia for alb is normal
severe hypoalbuminemia-encourage solute intake
abx per primary
follow h/h
d/w pt and nursing
if d/c today BMP in 2-3days with PCP
nephro f/u if needed
-
-
Date of Service: July 12, 2024
CC / HPI / ROS
-
Chief Complaint:
hyponatremia
History of Present Illness:
sodium no cahnge at 127
bp remain soft
hb stable 8.4
no fever
Review of Systems:
no co or sob
Labs
-
Labs:
WBC 7.2 10^3/uL (4.8-10.8) 07/12/24 05:06
RBC 2.33 10^6/uL (4.20-5.40) L 07/12/24 05:06
Hgb 8.4 g/dL (12.0-16.0) L 07/12/24 05:06
Hct 24.6 % (37.0-47.0) L 07/12/24 05:06
Plt Count 102 10^3/uL (130-400) L 07/12/24 05:06
Sodium 127 mmol/L (135-145) L 07/12/24 05:06
Potassium 3.5 mmol/L (3.5-5.1) 07/12/24 05:06
Chloride 102 mmol/L (98-107) 07/12/24 05:06
Carbon Dioxide 23 mmol/L (22-30) 07/12/24 05:06
BUN 5 mg/dl (7-17) L 07/12/24 05:06
Creatinine 0.4 mg/dL (0.6-1.0) L 07/12/24 05:06
eGFR > 60.00 07/12/24 05:06
Glucose 90 mg/dl (70-99) 07/12/24 05:06
Calcium 6.9 mg/dl (8.4-10.2) L* 07/12/24 05:06
Phosphorus 3.7 mg/dl (2.5-4.5) 07/08/24 08:10
Albumin 1.6 g/dl (3.5-5.0) L 07/12/24 05:06
Physical Exam
-
Vital Signs:
Vital Signs
Temp Pulse Resp BP Pulse Ox
98 F 90 14 106/73 98
07/12/24 12:41 07/12/24 12:41 07/12/24 12:41 07/12/24 12:37 07/12/24 12:41
Cardiovascular:: Regular rate and rhythm
Respiratory:: Bilateral: CTA
Lung Excursion:: Normal
Abdomen:: Distended, Nontender and Soft
Extremity Edema:: None: Bilateral:
Oshea Catheter: No
--- NOTE | 2024-07-12 14:28 | PTCARENOTE ---
Pt back up seated in chair for lunch. Reports she voided in bathroom again. Kitchen delivered wrong food order and pt did not eat. Declines this RN re-ordering her food tray. PT Naz worked with pt. Discharge plans discussed with attending, RN, and
case management. Pt needs walker to go home, will not be delivered until tomorrow so pt agrees to stay another night. Daughter Bernice at bedside verbalized understanding as well. Safe environment maintained.
--- NOTE | 2024-07-12 15:40 | CM ---
Patient seen bedside.
PT recommending skilled rehab, patient declined.
Patient agreed to home with VN, however no PCP.
Phone number for [facility] program provided.
Patient will need script for outpatient therapy PT/OT, TT to MD.
Patient needs RW, hospital therapy department unable to provide due to insurance.
[employer] unable to deliver until tomorrow. MD to write medical necessity note.
CM requested PT see patient again re safety, patient needs RW prior to d/c. Will request RW be delivered to hospital.
Discussed outpatient ETOH recourses pt declined, discussed outpatient psychiatric f/u, patient declined.
Plan: home with outpatient PT/OT script and RW to be delivered to hospital by [facility].
[2024-07-12] MEDS: ROCEPHIN 1000 MG IV (17:12)
[2024-07-12] MEDS: STERILE WATER FOR INJECTION 10 ML IV (17:12)
[2024-07-12 19:35] LABS: AFP Male/Tumor Marker 3.14 ng/ml
[2024-07-12 20:21] VITALS: BP 108/74
[2024-07-12 20:24] VITALS: BP 108/74
[2024-07-13 04:03] VITALS: BP 117/93
[2024-07-13 04:59] LABS: % Basophils 0.6 % (0-2); % Eosinophils 1.3 % (0-6); % Immature Granulocytes 1.1 % (0-0.5); % Lymphocytes 14.9 % (20.5-51.1); % Monocytes 9.5 % (1.7-9.3); % Neutrophils 72.6 % (42.2-75.2); Absolute Basophils 0.1 10^3/uL (0-0.2); Absolute Eosinophils 0.1 10^3/uL (0-0.7); Absolute Immature Granulocytes 0.1 10^3/uL (0-0.05); Absolute Lymphocytes 1.3 10^3/uL (1.2-3.4); Absolute Monocytes 0.8 10^3/uL (0.1-0.6); Absolute Neutrophils 6.4 10^3/uL (1.4-6.5); Hematocrit 25.9 % (37.0-47.0); Mean Corp Hgb Conc. 34.7 g/dL (33.0-37.0); Mean Corpuscular Hgb 36.4 pg (27.0-31.0); Mean Corpuscular Volume 104.9 fL (81.0-99.0); Mean Platelet Volume 10.7 fL (7.4-10.4); Nucleated Red Blood Cells % 0 %; Platelet Count 113 10^3/uL (130-400); Red Blood Cell Count 2.47 10^6/uL (4.20-5.40); Red Cell Dist. Width 19.4 % (11.5-14.5); White Blood Cell Count 8.8 10^3/uL (4.8-10.8)
[2024-07-13 05:12] LABS: ALT (SGPT) 23 U/L (0-35); AST (SGOT) 80 U/L (14-36); Albumin 1.7 g/dl (3.5-5.0); Alkaline Phosphatase 176 U/L (38-126); Blood Urea Nitrogen 6 mg/dl (7-17); Calcium 7.5 mg/dl (8.4-10.2); Carbon Dioxide 24 mmol/L (22-30); Chloride 98 mmol/L (98-107); Estimated Creatinine Clearance 80 ml/min; Glucose 102 mg/dl (70-99); Magnesium 1.7 mg/dl (1.6-2.3); Potassium 3.6 mmol/L (3.5-5.1); Sodium 125 mmol/L (135-145); Total Bilirubin 2.1 mg/dl (0.2-1.3); Total Protein 4.5 g/dl (6.3-8.2); eGFR > 60.00
[2024-07-13 05:18] VITALS: BMI 22.5
[2024-07-13 07:09] VITALS: BP 108/75
[2024-07-13] MEDS: NSS (PRESERVATIVE FREE) 10 ML IV (08:33)
[2024-07-13] MEDS: PROTONIX IV 40 MG IV (08:33)
[2024-07-13] MEDS: VITAMIN B1 100 MG PO (08:33)
[2024-07-13] MEDS: FOLVITE 1 MG PO (08:33)
--- NOTE | 2024-07-13 09:16 | W.PN.NEPH.PH ---
Today's Communication / Plan
-
Maintain fluid restrict
Lasix 20 mg p.o. daily just given worsening hyponatremia
Assessment/Plan
-
IMP:
Hypoantremia
Hypokalemia
Acute blood loss anemia 2/2 hematochezia
Alcohol abuse with impending withdrawal
Met acidosis with Lactic acidosis-resolved
alcoholic liver disease with radiographic cirrhosis
s/p paracentesis on 07/08/24 - 2L removed, Cx neg, no SBP by criteria, transudate 2/2 liver disease (portal HTN)
Concern for depression
Subsegmental atelectasis
UTI
hypocalcemia
Bilirubinemia
Transaminitis
Hypoalbuminemia
Plan:
A/w rectal bleeding, new diagnosis of ETOH cirrhosis
Hyponatremia-U osmo high at 529, low U na suggest prerenal+ liver disease
would maintain FR, normal TSH and cortisol
sodium now down to 125, start FR 48 ounces/day
not adding salt tabs due to ascites
will initiate lasix 20mg daily given worsening hypervolemic with increased weights
BP are soft with out meds
corrected celia for alb is normal
severe hypoalbuminemia-encourage solute intake, profound decrease in ECV
abx per primary
follow h/h
d/w pt and nursing
if d/c today BMP in 2-3days with PCP
nephro f/u if needed
-
-
Date of Service: July 13, 2024
CC / HPI / ROS
-
Chief Complaint:
hyponatremia
History of Present Illness:
Hyponatremia worsening to 125
bp remain soft
hb stable 9
no fever
Review of Systems:
no co or sob
Weights up
Urine output not recorded
Labs
-
Labs:
WBC 8.8 10^3/uL (4.8-10.8) 07/13/24 04:18
RBC 2.47 10^6/uL (4.20-5.40) L 07/13/24 04:18
Hgb 9.0 g/dL (12.0-16.0) L 07/13/24 04:18
Hct 25.9 % (37.0-47.0) L 07/13/24 04:18
Plt Count 113 10^3/uL (130-400) L 07/13/24 04:18
Sodium 125 mmol/L (135-145) L 07/13/24 04:18
Potassium 3.6 mmol/L (3.5-5.1) 07/13/24 04:18
Chloride 98 mmol/L (98-107) 07/13/24 04:18
Carbon Dioxide 24 mmol/L (22-30) 07/13/24 04:18
BUN 6 mg/dl (7-17) L 07/13/24 04:18
Creatinine 0.4 mg/dL (0.6-1.0) L 07/13/24 04:18
eGFR > 60.00 07/13/24 04:18
Glucose 102 mg/dl (70-99) H 07/13/24 04:18
Calcium 7.5 mg/dl (8.4-10.2) L 07/13/24 04:18
Phosphorus 3.7 mg/dl (2.5-4.5) 07/08/24 08:10
Albumin 1.7 g/dl (3.5-5.0) L 07/13/24 04:18
Physical Exam
-
Vital Signs:
Vital Signs
Temp Pulse Resp BP Pulse Ox
98 F 88 16 108/75 97
07/13/24 05:17 07/13/24 05:17 07/12/24 20:24 07/13/24 07:09 07/13/24 08:00
Cardiovascular:: Regular rate and rhythm
Respiratory:: Bilateral: CTA
Lung Excursion:: Normal
Abdomen:: Distended, Nontender and Soft
Extremity Edema:: None: Bilateral:
Oshea Catheter: No
[2024-07-13] MEDS: LASIX 20 MG PO (11:15)
--- NOTE | 2024-07-13 11:44 | W.PN.HOSP.TC ---
Today's Communication/Plan
-
Discharge today
Assessment / Plan
Assessment / Plan
Physical Exam
General: No Apparent Distress
HEENT: Normocephalic
Cardiac: S1 and S2. Regular Rhythm
GI: Soft, Nontender and Nondistended. Positive bowel sounds.
Skin: Warm. Dry.
Neuro: Awake, Alert, Oriented x3
Psych: Calm
Assessment/Plan
54yo F with no reported PMHx, not visiting doctors, alcohol abuse came with episode of bloody stool. She had similar episode before but did not see doctors for it. Also with elevated alcohol level managed for alcohol withdrawal. Found mild liver
cirrhosis with severe fatty infiltration, EGD with Multiple erosions, one with active oozing were found in the gastric body. s/p paracentesis on 07/08/24 - 2L removed, Cx neg, no SBP by criteria, transudate 2/2 liver disease (portal HTN). Also
possible UTI. Due to concern for depression without suicidal ideation - psychiatry called. Declined phenobarb, however no significant withdrawal. Also hyponatremia.
#Hyponatremia
#Hypokalemia
replete and follow electrolytes
2/2 alcohol consumption and liver disease
UOsm elevated - FR of 48 ounces per day
Nephrology consult: s/p 3% saline on 07/10/24
No salt tablets due to ascites
Start Lasix PO 20 mg daily given worsening hypervolemia with increased weights
Outpatient CMP in 2 to 3 days with PCP's office
#Acute blood loss anemia 2/2 hematochezia
#Heme (+) Dark Brown Stools
#Previous Rectal Bleeding
CTA on admission without active bleeding and no hemodynamically significant stenosis of mesenteric arteries
Serial H&H, transfuse as needed
PPI
GI consult: Multiple erosions, one with active oozing were found in the gastric body. For hemostasis, two hemostatic clips were successfully placed. There was no bleeding at the end of the procedure.
Avoid antiplatelets, anticoag and NSAIDs
Ascites with GIB - Ceftriaxone for SBP ppx
Protonix 40 mg BID
Follow-up with Dr. Powell in 4-6 weeks
Patient declined colonoscopy
AVOID NSAIDs
#Possible E.coli UTI with growth of Group G Streptococci in the Urine as well
Ceftriaxone -- transition to Cefdinir 300 mg BID for another 2 days
#Severe Alcohol Use Disorder
No signs of alcohol withdrawal or DT's
Thiamine/Folate/Multivitamins
[employer] on cessation
Phenobarb taper - patient keeps declining
#Lactic acidosis
possibly 2/2 NO-induced hypotension with cirrhosis and chronic alcohol use
resolved
#R lateral breast calcified nodularity
outpatient Mammogram advised
#Abdominal distension with ascites non-hemorrhagic appearing on CT
concern for alcoholic liver disease with radiographic cirrhosis
abdomen non-tender
s/p paracentesis on 07/08/24 - 2L removed, Cx neg, no SBP by criteria, transudate 2/2 liver disease (portal HTN)
#Hypoglycemia
2/2 poor oral intake
resolved
#Concern for depression
Psych consulted
#Subsegmental atelectasis
Incentive spirometry
#Bladder wall thickening 2/2 UTI
Ceftriaxone -- urine culture with E. coli and Group G Strep -- Cefdinir on discharge as above
outpatient urology for possible cystoscopy
#Portal flow not confirmed on US
Patient vasculature on CTA. As per agreement with GI and radiologist- no concern for PVT
Patient was not able to tolerate MRA
#hypocalcemia
replete and follow electrolytes
#Bilirubinemia
#Transaminitis
#Elevated alk.phos
2/2 liver cirrhosis with fatty liver infiltration on MRI
No overt signs of cholecystitis on imaging, most likely elevation 2/2 alcohol, liver cirrhosis
follow LFT
hepatitis panel neg
#Enlarged aortic root on XR
CT chest : Radiographic suggestion of widened mediastinum appears to be related to slight prominence of mediastinal fat, as well as tortuosity/uncoiling of the ascending aorta, extending to the right of midline. Ascending aorta is slightly
distended, though remains within normal limits, measuring up to 3.3 cm, without focal aneurysm. No dissection. The aortic annulus measures 2.5 cm. Sinotubular junction measuring 2.5 cm.
DVT ppx SCDs
Full code
Patient is in need of a walker to prevent falls due to unsteady gait.
More than 30 minutes spent in discharge including
Final examination of the patient
Summarizing hospital stay
Instructions for continuing care to all relevant caregivers
Preparation of discharge records, prescriptions, and referral forms
Total time spent (in minutes): 39
Anticipated Discharge: Today
Subjective/Interval History
-
Date of Service: July 13, 2024
Patient was seen and examined. She denied any complaints, she denied nausea, vomiting, hallucinations, chest pain, SOB, sweating or any other symptoms or complaints.
Objective Data
-
Labs:
Laboratory Results
07/13/24
04:18
WBC 8.8
Hgb 9.0 L
Hct 25.9 L
Plt Count 113 L
Sodium 125 L
Potassium 3.6
Chloride 98
Carbon Dioxide 24
BUN 6 L
Creatinine 0.4 L
Glucose 102 H
Calcium 7.5 L
Total Bilirubin 2.1 H
AST 80 H
ALT 23
Alkaline Phosphatase 176 H
Vital Signs:
Vital Signs
Temp Pulse Resp BP Pulse Ox
98 F 89 16 107/76 97
07/13/24 05:17 07/13/24 11:15 07/12/24 20:24 07/13/24 11:15 07/13/24 08:00
I&O
07/12/24 07/13/24 07/14/24
06:59 06:59 06:59
Intake Total 420 / 420 120 / 120
Output Total 0 / 0
Balance 420 / 420 120 / 120
--- NOTE | 2024-07-13 13:21 | PTCARENOTE ---
D/C order received, CM notified. RW delivered by [employer].
--- NOTE | 2024-07-13 14:14 | CM ---
CM following re: discharge planning.
Reviewed pt's chart, met with pt and pt's at bedside.
Discharge order noted. Pt is aware, expressed her agreement.
Rolling walker delivered to pt's room be [facility] DME liaison. Pt stated she met with [facility] and she is not interested in treatment.
PT and OT evaluations noted - home PT recommended. pt stated she would prefer home PT but she does not have PCP, expressed her agreement with outpatient therapy. Pt stated she has information regarding PCP offices in her area and she will choose
one.
Please provide a script for outpatient PT/OT. Pt stated she will come to outpatient therapy department.
D/C plan: home with outpatient therapy and family support. to transport.
== END 2024-07-13 15:50 | disposition home or self-care (01) | DRG 896 ==
LOC: ICU 22:33
PROVIDERS: Emergency Medicine; Internal Medicine; Physician Assistant; Radiology Vascular & Interventional Radiology; Student in an Organized Health Care Education/Training Program; ADMITTING PHYSICIAN Internal Medicine; ATTENDING PHYSICIAN Hospitalist; CONSULT PHYSICIAN Internal Medicine; CONSULT PHYSICIAN Internal Medicine Gastroenterology; EMERGENCY PHYSICIAN Emergency Medicine
PROC: 30233N1 Transfusion of Nonautologous Red Blood Cells into Peripheral Vein, Percutaneous Approach (ICD-10-PCS; 2024-07-07)
PROC: 0W3P8ZZ Control Bleeding in Gastrointestinal Tract, Via Natural or Artificial Opening Endoscopic (ICD-10-PCS; 2024-07-08)
PROC: 0W9G3ZX Drainage of Peritoneal Cavity, Percutaneous Approach, Diagnostic (ICD-10-PCS; 2024-07-08)
DX: F10.239 Alcohol dependence with withdrawal, unspecified (principal); K25.4 Chronic or unspecified gastric ulcer with hemorrhage; D62 Acute posthemorrhagic anemia; E87.1 Hypo-osmolality and hyponatremia; K76.6 Portal hypertension; E87.20 Acidosis, unspecified; J98.11 Atelectasis; N39.0 Urinary tract infection, site not specified; K62.5 Hemorrhage of anus and rectum; F10.229 Alcohol dependence with intoxication, unspecified; I10 Essential (primary) hypertension; Y90.8 Blood alcohol level of 240 mg/100 ml or more; I95.9 Hypotension, unspecified; K76.0 Fatty (change of) liver, not elsewhere classified; K70.31 Alcoholic cirrhosis of liver with ascites; F17.210 Nicotine dependence, cigarettes, uncomplicated; K31.89 Other diseases of stomach and duodenum; E16.2 Hypoglycemia, unspecified; E83.51 Hypocalcemia; E87.6 Hypokalemia; F32.A Depression, unspecified; E88.09 Other disorders of plasma-protein metabolism, not elsewhere classified; B96.20 Unspecified Escherichia coli [E. coli] as the cause of diseases classified elsewhere
CPT/HCPCS: 88305; 36430; 49083; 71045; 71275; 74174; 74181; 76700; 80048; 80053; 80306; 81003; 81015; 82010; 82042; 82077; 82105; 82248; 82533; 82570; 82607; 82728; 82746; 82962; 83036; 83540; 83550; 83605; 83735; 83935; 84100; 84157; 84295; 84300; 84439; 84443; 85014; 85018; 85025; 85027; 85610; 85730; 86704; 86706; 86803; 86850; 86900; 86901; 86920; 87015; 87040; 87070; 87077; 87086; 87147; 87186; 87205; 88112; 89051; 93306; 93975; 96365; 96366; 96375; 97116; 97162; 97166; 97530; 99291; P9016; Q9967

== ENCOUNTER 2024-07-17 16:07 | Inpatient (IN) | payer OTHER, SELFPAY ==
[2024-07-17] VITALS (11 sets, daily range): BP systolic 78–94; BP diastolic 60–74
[2024-07-17 13:44] LABS: Hematocrit 24.9 % (37.0-47.0); Hemoglobin 8.7 g/dL (12.0-16.0); Mean Corp Hgb Conc. 34.9 g/dL (33.0-37.0); Mean Corpuscular Hgb 36.7 pg (27.0-31.0); Mean Corpuscular Volume 105.1 fL (81.0-99.0); Mean Platelet Volume 9.8 fL (7.4-10.4); Platelet Count 313 10^3/uL (130-400); Red Blood Cell Count 2.37 10^6/uL (4.20-5.40); Red Cell Dist. Width 18.8 % (11.5-14.5); White Blood Cell Count 8.9 10^3/uL (4.8-10.8)
--- NOTE | 2024-07-17 13:50 | ED.GENMED ---
History of Present Illness
General
Chief Complaint: Rectal Bleeding
Source: patient, records and spouse
Time Seen by Provider: 07/17/24 12:46
History of Present Illness
History of Present Illness:
This patient is a 54-year-old female presents emergency department complaints of bright red blood per rectum. She first noticed it at around 4 AM on , and since then has noted repeated episodes. She states that every time she eats she
passes bright red blood in as such has decreased her p.o. intake. She denies clots, black stool, hematuria, vaginal bleeding, fever, chills, chest pain, shortness of breath. She does note abdominal distention secondary to ascites but denies
abdominal pain. Patient was recently admitted to the hospital and discharged on Friday.
Past History
Past History
ED Past Medical History: HTN and Other (Alcohol use disorder, gastric ulcer, cirrhosis)
ED Past Surgical History:
Social History
Tobacco: Non-smoker
Alcohol: Chronic alcoholic
Drug: None
Personal:
Living: with family
Phy Exam
Physical Exam
Physical Exam:
GENERAL: Alert , in no apparent distress, thin
EYE: pupils equal and reactive, conjunctive a pale
NECK: Supple, no significant adenopathy.
ENT: o/p clr, mmm.
CARDIAC: Regular rate and rhythm .
LUNGS: Clear breath sounds bilaterally, no acute respiratory distress, no wheezes/rales/rhonchi
ABDOMEN: Soft, without focal tenderness, distended, no r/g, no cvat
NEUROLOGICAL: Alert and oriented, no focal neuro deficits
SKIN: Warm and dry, skin intact.
MUSCULOSKELETAL: No edema, well perfused.
PSYCH: Normal and appropriate interaction.
Rectal Fish RN present present external hemorrhoids noted, heme positive
Course
Orders/Labs/Results
Orders:
Orders
07/17/24 13:11
Electrocardiogram (*1) Stat
Reason for Study: Other
Other Reason for Exam: GI Bleed
Cardiac Monitoring- Treatment ONCE
EKG- Treatment ONCE
IV Insert/Care/Rem.- Treatment PRN
07/17/24 13:34
Type+Screen Urgent
Alcohol Urgent
Complete Blood Count/No Diff Urgent
Comprehensive Metabolic Panel Urgent
07/17/24 14:52
0.9% Sodium Chloride 250 ml [Nss] 250 ml IV BOLUS
07/17/24 Dinner
Clear Liquid
At Your Request: Limited Participation
07/17/24 15:44
Admit/Transfer Patient As Directed
Co-Sign Provider:
Level of Care: Inpatient admission
Assign to:: IMU- Intermediate Care
Physician / Group: Dr Nascimento
Diagnosis: GI bleed
Reason for Hospitalization: GI bleed
Expected length of stay greater than two midnights?: Yes
ELOS- Estimated Length of Stay in days: 2
I certify the patient meets the requirements for IP care: Yes
PRN Pain Medication Management As Directed
May give lesser potent ordered pain med per pt: Yes
preference::
Protocol:: Medication orders for pain may be administered in a
manner that supports deferring to patient preference
when the pt is:
- Requesting an ordered lesser potent pain medication.
Least to most potent pain medications are defined
as: acetaminophen < NSAID < tramadol < opioids
(morphine, oxycodone, hydromorphone).
- Requesting a lesser dose of the same medication IF
ORDERED.
- Requesting a less intrusive route of administration
if both routes are prescribed by the provider (PO <
IV).
07/17/24 15:45
Code Status As Directed
Resuscitation Status: Full Code
07/17/24 15:48
Acetaminophen [Tylenol] 650 mg PO NOW STA
07/17/24 15:49
GASTROINTESTINAL CONSULT Routine
Consulting Provider: Zahira Renee
Was physician already notified: Yes
Reason for consult: GI bleed
07/17/24 15:50
CT Angio Abd/Pelvis w/wo IV [CT Abd/pelvis Angio W/wo Iv] Stat
Comment:
Reason For Exam: rectal bleed and abd pain
07/17/24 15:51
Pantoprazole [Protonix IV] 40 mg IV NOW STA
07/17/24 15:54
Case Management Consult Once
Case Management Consult: Other
Comment: Substance abuse counseling
DIETARY IP CONSULT Routine
Reason for Consult: Nutrition support, possible refeeding guidelines
Urine Drug Abuse Screen Routine
Date Specimen was Collected: 07/18/24
Time Specimen was Collected: 00:47
0.9% Sodium Chloride [Nss (Preservative Free)] See Protocol IV PRN PRN
FOLic ACID [Folvite] 1 mg 0.9% Sodium Chloride 50 ml [Nss] 50 ml IV DAILYPRN
Lorazepam [Ativan] 1 mg IV Q1HPRN PRN
Lorazepam [Ativan] 1 mg PO Q2HPRN PRN
Lorazepam [Ativan] 2 mg IV Q1HPRN PRN
MSAS SCORE As Directed
MSAS Score 0-4: Repeat MSAS every 2 hours until 0-4 for three consecutive assessments, then every 4 hours x 48
hours.
MSAS Score 5-7: For MILD withdrawl symptoms. Repeat MSAS and RASS every 2 hours
MSAS Score 8-11: For MODERATE withdrawal symptoms. Repeat MSAS and RASS every 1 hour. Consider ICU or IMU
level of care.
MSAS Score > 11: For SEVERE withdrawal symptoms. Repeat MSAS and RASS every 1 hour. Notify provider, consider
ICU level of care.
MSAS Additional Instructions: If no improvement or no decrease in score from severe to moderate within 12
hours, consult psychiatry
MSAS Notify Provider: Notify provider if patient requires more than 10 mg of Lorazepam in eight hour period.
07/17/24 16:00
CefTRIAXone [Rocephin] 1,000 mg IV Q24H
FOLic ACID [Folvite] 1 mg PO DAILY
Lactated Ringers [Lr] 1,000 ml IV 100 mls/hr
Thiamine Injection 200 mg IV Q8
07/17/24 16:07
Potassium Chloride [KCl] 40 meq 0.9% Sodium Chloride 250 ml [Nss] 250 ml IV NOW
07/17/24 18:24
Octreotide Acetate [Sandostatin] 600 mcg 0.9% Sodium Chloride 500 ml [Nss] 500 ml IV Q12H
Pantoprazole 80 mg/100 ml Nss [Protonix] 80 mg in 100 ml IV Q10H
07/17/24 18:24
Activity As Directed
Activity Level: Bedrest for limited time
Bedrest duration in hours then activity as indicated above:: 12
INT (Intravenous Needle Therapy) As Directed
Comment: Place 2 IV catheters of the largest bore possible until stable
Orthostatic Vital Signs As Directed
Orthostatic VS Frequency: Now
Comment: then every four hours for twenty-four hours
Pneumatic Compression Sleeves As Directed
Type: Knee high
Vital Signs As Directed
Frequency: Per unit guidelines
DX Deep Vein Thrombosis Video Routine
07/17/24 19:52
H&H Q6H
07/18/24 03:32
CBC/With Diff [Complete Blood Count/With Diff] IN AM
CMP [Comprehensive Metabolic Panel] IN AM
INR [Prothrombin Time] IN AM
Magnesium IN AM
Phosphorus IN AM
07/20/24 20:00
Thiamine HCl [Vitamin B1] 100 mg PO BID
Abnormal Lab Results
07/17/24
13:34
RBC 2.37 L 10^6/uL
(4.20-5.40)
Hgb 8.7 L g/dL
(12.0-16.0)
Hct 24.9 L %
(37.0-47.0)
MCV 105.1 H fL
(81.0-99.0)
MCH 36.7 H pg
(27.0-31.0)
RDW 18.8 H %
(11.5-14.5)
Sodium 127 L mmol/L
(135-145)
Potassium 3.2 L mmol/L
(3.5-5.1)
Chloride 96 L mmol/L
(98-107)
Creatinine 0.5 L mg/dL
(0.6-1.0)
Glucose 116 H mg/dl
(70-99)
Calcium 7.7 L mg/dl
(8.4-10.2)
Total Bilirubin 1.8 H mg/dl
(0.2-1.3)
AST 60 H U/L
(14-36)
Alkaline Phosphatase 194 H U/L
(38-126)
Total Protein 5.8 L g/dl
(6.3-8.2)
Albumin 2.4 L g/dl
(3.5-5.0)
Crossmatch IS Only See Detail
07/17/24 13:34
07/17/24 13:34
Vital Signs
Initial and Last Documented VS:
Initial Vital Signs
Temp Pulse Resp BP Pulse Ox
97.3 F 109 16 88/60 100
07/17/24 12:28 07/17/24 12:28 07/17/24 12:28 07/17/24 12:28 07/17/24 12:28
Last Documented Vital Signs
Temp Pulse Resp BP Pulse Ox
97.8 F 69 18 97/75 97
07/19/24 09:25 07/19/24 10:12 07/19/24 10:12 07/19/24 10:12 07/19/24 10:10
*Critical Care Note
Total Time (30-74mins, 75-104mins- exclusive of procedures): Not Applicable
Update Note
Update Note:
Patient presents to the Emergency Department with __bright red blood per rectum
Number and Complexity of Problems Addressed at the Encounter
� Chronic conditions affecting care:
� Acute Exacerbation and/or Progression of Chronic Illness:
� Differential Diagnosis includes: But not limited to bleeding related to hemorrhoids, bleeding related to gastric ulcer, bleeding related to diverticulosis, etc. etc.
Amount and/or Complexity of Data to be Reviewed and Analyzed
� I performed an independent evaluation of and my interpretation is:
EKG: Read by me, normal sinus rhythm, low voltage, no acute ischemia
CT:
Xrays:
Laboratory Studies: Hemoglobin stable, hyponatremia improved, mild hypokalemia, mild hypocalcemia
Other:
� Review of other/old records reveals: Patient was scoped in prior hospitalization, discharge summary reviewed gastric erosion noted at that time, as well as portal hypertensive gastropathy and cirrhosis
� Clinical information was obtained by an independent historian: who is bedside
� Prescriptions/Medications Considered but not given:
� Further testing considered but not performed:
Risk of Complications and/or Morbidity or Mortality of Patient Management
� Social determinants of health affecting care:
� Discussion with other providers (PCP, Hospitalists, Consultants, etc):
� Escalation of care including admission/observation vs risk of discharge considered: 2:49 PM no specific episodes of bleeding here. However, given history of repeated episodes of bright red blood per rectum and patient's prior
medical history/high risk, plan is to keep overnight under observation. Patient already on a PPI. Blood pressure slightly soft in comparison to prior readings, IV fluids ordered.
ED Attending Note
-
Portions of this chart may have been created with voice recognition software.� Occasional wrong word or��sound alike� substitutions may have occurred due to the inherent limitations of voice recognition software.
Discharge Plan
Departure
Patient Disposition: Admit
Date of Disposition: 07/17/24
Time of Disposition: 14:53
Admit to: Telemetry
Presentation/result/management discussed w/ accepting MD/DO: Hospitalist
Condition: Fair
Discharge Problem:
GI (gastrointestinal bleed)
Interventions
Interventions:
*Risk Screen - Suicide Last Done: 07/17/24 12:31
*Neglect/Abuse Screening Last Done: 07/17/24 12:31
*ED COVID-19 Vaccine History Last Done: 07/17/24 18:35
*Nursing Disposition Last Done: 07/17/24 18:41
ML-Kqfqmu-Kemdcuvcvv Assessment Last Done: 07/17/24 12:37
ED- Cardiac Assessment Last Done: 07/17/24 12:37
ED- Pulmonary Assessment Last Done: 07/17/24 12:37
Discharge Date and Time
Discharge Date/Time: 07/17/24 18:42
[2024-07-17 13:56] LABS: ALT (SGPT) 25 U/L (0-35); AST (SGOT) 60 U/L (14-36); Albumin 2.4 g/dl (3.5-5.0); Alkaline Phosphatase 194 U/L (38-126); Blood Urea Nitrogen 11 mg/dl (7-17); Calcium 7.7 mg/dl (8.4-10.2); Carbon Dioxide 24 mmol/L (22-30); Chloride 96 mmol/L (98-107); Glucose 116 mg/dl (70-99); Potassium 3.2 mmol/L (3.5-5.1); Sodium 127 mmol/L (135-145); Total Bilirubin 1.8 mg/dl (0.2-1.3); Total Protein 5.8 g/dl (6.3-8.2); eGFR > 60.00
[2024-07-17] MEDS: NSS 250 IV (15:30)
--- NOTE | 2024-07-17 15:52 | HPS.HSE ---
Addendum entered and electronically signed by Shmuel Nascimento MD 07/17/24 18:51:
Patient wants to change code status to DNR.
Original Note:
Family Physician
-
Family Physician: Henrry Verdugo MD
Chief Complaint
-
Bright blood per rectum
History of Present Illness
Patient 54 years old female history of alcohol abuse, decompensated cirrhosis, recent admission for GI bleed, came into the hospital with bright blood per rectum. Patient was recently hospitalized and had an upper endoscopy that shows portal
gastropathy and gastric erosions status post Hemoclip last week and she tells me she was discharged on Friday and over the last 3 days she has been having rectal bleeding. Patient reports bright blood per rectum several episodes up to 7 times
yesterday and 4 times today including 1 episode here in the ED. Patient also reports some dark stools. She also has abdominal pain intermittent in nature and abdominal distention that she is not sure if is any worse than last week. Denies any
fevers or chills. Denies use of NSAIDs. She is a heavy alcohol drinker but she claims she has not drank for last 2 weeks. Denies any use of anticoagulants. She does use acetaminophen. She denies any chest pain or shortness of breath. In the
ER, hemoglobin noted to be 8.7 and noticed to be relatively hypotensive and tachycardic. No images done. She was referred to hospitalist service for further evaluation.
Medical History
Past Medical History
Past Medical History: Reports Other (Alcohol dependence, GI bleed with gastric erosions and portal gastropathy, liver cirrhosis, hemorrhoids, and anemia.)
Past Surgical History: Reports Other (Upper endoscopy last week, in the past.)
Social History
Tobacco: Smoker
Alcohol: None (Over the last week no alcohol. She does drink alcohol heavily prior to this week.)
Drug: Former User
Personal:
Living: With Family
Employment: Not Employed
Family History
Family History: Not pertinent
Allergies / Home Medications
Allergies reflects when Allergies were last updated in TRAN[employer]SL.
Home Medications with original date entered in TRAN.SL
Allergy/Medication List:
Allergies
Allergy/AdvReac Type Severity Reaction Status Date / Time
No Known Allergies Allergy Verified 07/07/24 20:06
Home Medications
folic acid 1 mg tablet 1 mg PO DAILY #30 tabs 07/13/24
furosemide 20 mg tablet 20 mg PO DAILY #30 tabs 07/13/24
pantoprazole 40 mg tablet,delayed release 40 mg PO Q12H #60 tabs 07/13/24
thiamine mononitrate (vit B1) 100 mg tablet 200 mg (2 x 100 mg) PO DAILY #60 tabs 07/13/24
acetaminophen 325 mg tablet (Tylenol) 650 mg PO Q6HPRN PRN mild pain 07/17/24
Review of Systems
-
A 12 point ROS was completed and negative except as noted: Yes
Physical Exam
Vital Signs
Vital Signs
Temp Pulse Resp BP Pulse Ox
97.3 F 109 16 88/60 100
07/17/24 12:28 07/17/24 12:28 07/17/24 12:28 07/17/24 12:28 07/17/24 12:28
Physical exam:
General: Acutely ill
HEENT: Normocephalic, Atraumatic and dry mucous Membranes
Respiratory: Clear to Auscultation; Negative Wheezes, Rales or Rhonchi
Cardiac: Regular Rhythm and S1/S2
GI: Soft, tender and distended
Musculoskeletal: No Clubbing, No Cyanosis. Bilateral lower extremity edema
Neuro: Awake, Alert and Oriented, no neurological deficits. No asterixis
Psych: Anxious, normal judgment and insight.
Physical Exam
General: Other
Laboratory Results
-
07/17/24 13:34
Laboratory Results
Total Bilirubin 1.8 mg/dl (0.2-1.3) H 07/17/24 13:34
AST 60 U/L (14-36) H 07/17/24 13:34
ALT 25 U/L (0-35) 07/17/24 13:34
Alkaline Phosphatase 194 U/L (38-126) H 07/17/24 13:34
Data Reviewed
-
Lab Data: Labs Reviewed by me
Impression/Plan
-
IMPRESSION:
Patient 54 years old female with history of alcohol abuse, decompensated cirrhosis, recent admission for GI bleed came into the hospital for recurrent bright blood per rectum. Patient with acute GI bleed presentation and increased risk of repeated
mortality therefore she will need to be treated in the hospital and monitor accordingly.
PLAN:
Acute GI bleed:
Upper versus lower GI source in the setting of known history of portal hypertension
Clear liquid diet for now
Monitor hemoglobin every 6 hours
Protonix drip
Octreotide drip
IV ceftriaxone
Stat CTA of the abdomen and pelvis
GI consult-discussed with GI via [place] text today
Acute blood loss anemia:
Hemoglobin 8.7 with active bleeding; last hemoglobin 9 on 07/13
Recheck hemoglobin now and every 6 hours
Blood transfusion as needed but higher threshold to transfuse given cirrhosis
Relative hypotension:
IV fluid
Monitor hemodynamic closely
Hold diuretics
Hypokalemia:
Due to diuretics and can precipitate hepatic encephalopathy and cardiac arrhythmias as well
Replete aggressively with IV and keep on cardiac monitoring
Hyponatremia:
Chronic and likely cirrhosis related
Monitor electrolytes closely
Decompensated cirrhosis:
Will need to reassess need for paracentesis down the road
Hold diuretics for now but will restart down the road as well
Alcohol use disorder:
Patient with history of heavy alcohol use.
She does noted that she has not drank over the last 2 weeks since her hospitalization.
Repeat alcohol levels
MSA protocol for now
DVT prophylaxis:
SCDs
CODE STATUS:
Full code
Total Critical Care Time__65___ minutes. I was immediately available to the patient and staff. I personally examined, reviewed labs, diagnostic images/reports, interpretations, treatment plans, discussed patient care with other providers and
family or caregivers (if patient is unable to make decisions), entered orders as appropriate and documented the medical record.
[2024-07-17] MEDS: TYLENOL 650 MG PO (15:58)
[2024-07-17] MEDS: PROTONIX IV 40 MG IV (15:59)
[2024-07-17 17:12] LABS: Alcohol None Detected
[2024-07-17] MEDS: KCL 270 MEQ IV (17:23)
--- NOTE | 2024-07-17 18:30 | PTCARENOTE ---
Patient received from the ED. at bedside. Patient AAO, VSS. K-rider, through IV. Admission done. Oriented to room. Call julian in reach.
[2024-07-17] MEDS: SANDOSTATIN 500.6 MCG IV (20:12)
[2024-07-17 20:13] LABS: Hematocrit 25.1 % (37.0-47.0); Hemoglobin 8.8 g/dL (12.0-16.0)
[2024-07-17] MEDS: LR 1000 IV (20:17)
[2024-07-17] MEDS: ROCEPHIN 1000 MG IV (20:32)
[2024-07-17] MEDS: FOLVITE PO (20:32)
[2024-07-17] MEDS: THIAMINE INJECTION 200 MG IV (20:32)
[2024-07-17] MEDS: FLUSH (NSS) 1 FLUSH IV ×3 (20:33→20:34)
[2024-07-17] MEDS: STERILE WATER FOR INJECTION 10 ML IV (20:33)
[2024-07-17] MEDS: PROTONIX 100 IV (22:18)
[2024-07-17] MEDS: THIAMINE INJECTION IV (22:19)
[2024-07-18] VITALS (17 sets, daily range): BP systolic 80–114; BP diastolic 57–86
[2024-07-18 01:10] LABS: Amphetamines Negative (Negative); Barbiturates Positive (Negative); Benzodiazepines Positive (Negative); Buprenorphine Negative (Negative); Cocaine Negative (Negative); Marijuana Negative (Negative); Methadone Negative (Negative); Methamphetamines Negative (Negative); Opiates Negative (Negative); Phencyclidine Negative (Negative); Tricyclic Antidepressants Negative (Negative)
[2024-07-18 01:25] LABS: Fentanyl, Urine Negative (Negative)
[2024-07-18] MEDS: LR 1000 IV (03:22)
[2024-07-18 04:03] LABS: ALT (SGPT) 20 U/L (0-35); AST (SGOT) 46 U/L (14-36); Albumin 1.7 g/dl (3.5-5.0); Alkaline Phosphatase 156 U/L (38-126); Blood Urea Nitrogen 10 mg/dl (7-17); Calcium 7.3 mg/dl (8.4-10.2); Carbon Dioxide 24 mmol/L (22-30); Chloride 100 mmol/L (98-107); Glucose 104 mg/dl (70-99); INR 1.49; Magnesium 1.5 mg/dl (1.6-2.3); PT 18.2 Sec (11.4-14.6); Phosphorus 3.6 mg/dl (2.5-4.5); Potassium 3.6 mmol/L (3.5-5.1); Sodium 128 mmol/L (135-145); Total Bilirubin 1.3 mg/dl (0.2-1.3); Total Protein 4.8 g/dl (6.3-8.2); eGFR > 60.00
[2024-07-18 04:05] LABS: % Basophils 1.5 % (0-2); % Eosinophils 1.9 % (0-6); % Immature Granulocytes 1.6 % (0-0.5); % Lymphocytes 31.1 % (20.5-51.1); % Monocytes 10.4 % (1.7-9.3); % Neutrophils 53.5 % (42.2-75.2); Absolute Basophils 0.1 10^3/uL (0-0.2); Absolute Eosinophils 0.1 10^3/uL (0-0.7); Absolute Immature Granulocytes 0.1 10^3/uL (0-0.05); Absolute Lymphocytes 2.3 10^3/uL (1.2-3.4); Absolute Monocytes 0.8 10^3/uL (0.1-0.6); Hematocrit 19.2 % (37.0-47.0); Hemoglobin 6.7 g/dL (12.0-16.0); Mean Corp Hgb Conc. 34.9 g/dL (33.0-37.0); Mean Corpuscular Hgb 35.8 pg (27.0-31.0); Mean Corpuscular Volume 102.7 fL (81.0-99.0); Mean Platelet Volume 9.4 fL (7.4-10.4); Nucleated Red Blood Cells % 0 %; Platelet Count 225 10^3/uL (130-400); Red Blood Cell Count 1.87 10^6/uL (4.20-5.40); Red Cell Dist. Width 18.8 % (11.5-14.5); White Blood Cell Count 7.5 10^3/uL (4.8-10.8)
--- NOTE | 2024-07-18 04:34 | W.PN.UPDATE ---
Update Note
Progress Note Update
Critical lab value received: Hgb 6.7. Type and screen completed. Talked with patient regarding need for transfusion, explained risks and benefits, obtained written consent, placed in chart. Ordered 1 unit PRBC's to be infused today. Additional units
to be ordered as needed.
[2024-07-18] MEDS: PROTONIX 100 IV (05:33)
--- NOTE | 2024-07-18 06:22 | PTCARENOTE ---
Caring for pt overnight, admitted prior to start of shift. aaox3, NSR on monitor. BP's running soft overnight, MAPS all >65. IVF. protonix, & sandostatin gtt all running. Trend Hgb, at 0300 check it was 6.7, no bloody BM's since coming to floor, pt
complaining of back pain, no other signs of bleeding. TEXTILE FINISHER aware, 1UPRBC ordered. TEXTILE FINISHER aware of bp's, will monitor to see if improves with blood. MSAS normal. No other issues. will monitor.
[2024-07-18] MEDS: SANDOSTATIN 500.6 MCG IV ×2 (08:39→21:37)
--- NOTE | 2024-07-18 09:00 | CON.GI ---
Consultation
-
Date/Time Consultation Requested: 07/17/2024 3:50pm
Date/Time Consultation Performed: 07/18/2024, 9am
Requesting Provider: Dr. Nascimento
Performing Provider: Dr. Renee
Reason for Consultation: GIB
Medical History
Chief Complaint / HPI
Chief Complaint: hematochezia
History of Present Illness:
Patient is a 54-year-old female past medical history of alcoholic cirrhosis with recent admission July 07 for GI bleeding. It was during this admission that she was diagnosed with cirrhosis. At that time, the stool was noted to be both dark and
bright red so was unsure if she was having upper GI bleed versus lower GI bleed. The rectal exam at that time according to notes showed melena. She will underwent an upper endoscopy on July 08 which showed normal esophagus with no varices, portal
hypertensive gastropathy, gastric erosions 1 with active oozing which was clipped, normal duodenum. This was not felt to explain the drop in hemoglobin and a colonoscopy was discussed with the patient who declined. During that admission, she also
underwent a paracentesis with fluid studies consistent with portal hypertension and no SBP. She also had metabolic acidosis and hyponatremia which nephrology saw her for. It was felt her hyponatremia was due to prerenal and liver disease. There
is also concern of possible portal vein thrombosis as her Doppler showed no color Doppler signal in the main portal vein or left intrahepatic portal vein and she underwent a MRI for this which showed nondiagnostic evaluation of the portal vein.
However, Dr. Dockery reviewed with radiology and it was felt that the CTA was definitive and there was no portal vein thrombosis and there is patent vasculature of both the portal vein and hepatic vein and no further imaging would be necessary. Of
note, patient was only discharged with Lasix 20 mg in regards to diuretics as well as Protonix 40 mg. She has a follow-up with GI August [address] Powell.
Patient is now readmitted with rectal bleeding which started at 4 AM on and she had repeated episodes which led to her coming into the hospital Friday night. She also has abdominal distention but no abdominal pain. She underwent a CTA
which showed no active GI bleeding, severe mucosal hyperenhancement and thickening in the stomach, moderate mucosal hyperenhancement in the rectum, moderate to large volume of ascites,'s severe steatosis and mild enlargement of the right lobe of the
liver, severe iron deposition and moderate atrophy of the left lobe of the liver, uterine leiomyoma, pericardial effusion, other incidental findings.
Overnight, her hemoglobin did drop to 6.7 this morning. MELD this morning is 20.
On discussion with patient, she states she has had bleeding for the last 20 years intermittently. However, recently it has become more severe which led to her 2 hospitalizations. She also has longstanding diarrhea having 5-6 bowel movements a day
with no nocturnal bowel movements but having incontinence with diarrhea every other day. 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 However, morning she had a small amount of blood but then
throughout the day she had increased amount of blood with clots and she cannot get off the toilet. This continued until she went to the emergency room on Friday.
On review of symptoms, she does have dysphagia to food and issues with pills. She also has some back pain and is asking for Tylenol. She has had 20 pound weight loss in the last 1 to 2 years. She has some abdominal distention and discomfort.
She has never had a colonoscopy and she states she often tries to avoid going to the doctor. Her last drink was July 07 prior to her last hospitalization.
Past Medical History
Past Medical History: Other (alcoholic cirrhosis with ascites; recent admission for GIB)
Past Surgical History: None
Social History
Tobacco: Smoker
Alcohol: Chronic Alcoholic
Drug: Former User
Family History
Family History: Reviewed & Not Pertinent
Allergies / Home Medications
Allergy/AdvReac Type Severity Reaction Status Date / Time
No Known Allergies Allergy Verified 07/07/24 20:06
�Medication �Instructions �Recorded
folic acid 1 mg tablet 1 mg PO DAILY #30 tabs 07/13/24
furosemide 20 mg tablet 20 mg PO DAILY #30 tabs 07/13/24
pantoprazole 40 mg tablet,delayed 40 mg PO Q12H #60 tabs 07/13/24
release
thiamine mononitrate (vit B1) 100 200 mg (2 x 100 mg) PO DAILY #60 07/13/24
mg tablet tabs
acetaminophen 325 mg tablet 650 mg PO Q6HPRN PRN mild pain 07/17/24
(Tylenol)
Review of Systems
-
All other systems: A 12 pt ROS was Negative except as stated above in HPI
Vital Signs
Temp Pulse Resp BP Pulse Ox
98.3 F 84 18 96/74 98
07/18/24 08:14 07/18/24 08:01 07/18/24 08:01 07/18/24 08:01 07/18/24 08:01
Physical Exam
Exam
General: Comfortable
HEENT: Normocephalic
Respiratory: Clear
Cardiac: S1/S2
GI: Non Tender and Distended
Musculoskeletal: No Clubbing
Skin: Warm
Neuro: AO x 3
Psych: Calm
Results
WBC 7.5 10^3/uL (4.8-10.8) 07/18/24 03:32
Hgb 6.7 g/dL (12.0-16.0) L* D 07/18/24 03:32
Hgb Cancelled 07/18/24 03:32
Hct 19.2 % (37.0-47.0) L* 07/18/24 03:32
Hct Cancelled 07/18/24 03:32
MCV 102.7 fL (81.0-99.0) H 07/18/24 03:32
Plt Count 225 10^3/uL (130-400) D 07/18/24 03:32
Absolute Neuts (auto) 4.0 10^3/uL (1.4-6.5) 07/18/24 03:32
PT 18.2 Sec (11.4-14.6) H 07/18/24 03:32
INR 1.49 07/18/24 03:32
Sodium 128 mmol/L (135-145) L 07/18/24 03:32
Potassium 3.6 mmol/L (3.5-5.1) 07/18/24 03:32
Chloride 100 mmol/L (98-107) 07/18/24 03:32
Carbon Dioxide 24 mmol/L (22-30) 07/18/24 03:32
BUN 10 mg/dl (7-17) 07/18/24 03:32
Creatinine 0.4 mg/dL (0.6-1.0) L 07/18/24 03:32
Calcium 7.3 mg/dl (8.4-10.2) L 07/18/24 03:32
Total Bilirubin 1.3 mg/dl (0.2-1.3) 07/18/24 03:32
AST 46 U/L (14-36) H 07/18/24 03:32
ALT 20 U/L (0-35) 07/18/24 03:32
Alkaline Phosphatase 156 U/L (38-126) H 07/18/24 03:32
Diagnostic Image Results:
Prior GI Procedures:
EGD:
Colonoscopy:
Assessment / Plan
-
Ms Garcia is a 54-year-old female recent diagnosis of alcoholic cirrhosis with ascites, recent admission for GI bleeding presenting with again bright red blood per rectum. I suspect this is a colonic source, differential may also include small bowel.
Diff dx: rectal varices, IBD (with diarrhea), diverticulosis, AVM.
With her hemoglobin today, I do recommend transfusion with goal hemoglobin over 7. Trend hemoglobin.
She may have rectal varices still we will continue the octreotide for now. I will stop the Protonix drip and switch it to IV twice daily. She had an upper endoscopy 10 days ago with only some gastric erosions and portal hypertensive gastropathy
which were not felt to be the cause of bleeding previously. Her BUN is also 10 also consistent with this is a lower GI bleed source rather than upper.
I discussed with patient colonoscopy. We discussed colorectal cancer screening modalities including colonoscopy, flexible sigmoidoscopy, imaging, fecal occult blood test and other stool based tests. We discussed the risks of colonoscopy including
bleeding, infection, missed lesion, incomplete procedure, perforation and cardiopulmonary complications from anesthesia. Patient agreed to the procedure. Will potentially biopsy the colon. Platelets 225, INR 1.49.
Patient will also need paracentesis. I will discuss with anesthesia and may be best to do the paracentesis prior to the colonoscopy tomorrow to decrease risk of aspiration during her procedure.
In the interim, I do recommend that we continue with ceftriaxone given the fact that she has GI bleeding and ascites to decrease her risk of SBP. We will hold diuretics for now given the fact that she has bleeding but it is imperative that she is
discharged on diuretics.
Recommend daily MELD labs. I will also add tylenol prn for pain - ok to take max dose 2g/day with cirrhosis. Avoid NSAIDs with bleeding and cirrhosis.
-
-
Thank you for consultation and allowing me to participate in the patient's care. Please call the occupational therapist GI physician during the after hours with any questions or concerns.
[2024-07-18] MEDS: THIAMINE INJECTION 200 MG IV ×3 (09:05→23:11)
[2024-07-18] MEDS: FOLVITE 1 MG PO (09:05)
--- NOTE | 2024-07-18 09:21 | W.PN.HOSP.TC ---
Addendum entered and electronically signed by Shmuel Nascimento MD 07/18/24 14:20:
Stop IV fluids for now in the setting of cirrhosis. If becomes hypotensive can use albumin if needed.
Original Note:
Today's Communication/Plan
-
PPI. Blood transfusion. Plan for colonoscopy in a.m.
Assessment / Plan
Assessment / Plan
Physical exam:
General: Acutely ill
HEENT: Normocephalic, Atraumatic and dry mucous Membranes
Respiratory: Clear to Auscultation; Negative Wheezes, Rales or Rhonchi
Cardiac: Regular Rhythm and S1/S2
GI: Soft, tender and distended
Musculoskeletal: No Clubbing, No Cyanosis. Bilateral lower extremity edema
Neuro: Awake, Alert and Oriented, no neurological deficits. No asterixis
Psych: Anxious, normal judgment and insight.
A/P:
Acute GI bleed:
Upper versus lower GI source but most likely the latter
Clear liquid diet for now
Monitor hemoglobin post-transfusion
Protonix drip
Octreotide drip
IV ceftriaxone
Stat CTA of the abdomen and pelvis and reviewed results
GI consult appreciated
Discussed with daughter at bedside
Plan for colonoscopy tomorrow
Acute blood loss anemia:
Hemoglobin 8.7 with active bleeding upon admission--> today hemoglobin 6.7
Blood transfusion ordered and follow-up posttransfusion hemoglobin
Last hemoglobin 9 on 07/13
Recheck hemoglobin
Relative hypotension:
IV fluid
Monitor hemodynamic closely
Hold diuretics
Hypokalemia:
Due to diuretics and can precipitate hepatic encephalopathy and cardiac arrhythmias as well
Replete aggressively with IV and keep on cardiac monitoring
Hyponatremia:
Chronic and likely cirrhosis related
Monitor electrolytes closely
Hypomagnesemia:
Replete and trend
Decompensated cirrhosis:
Likely paracentesis tomorrow
Continue IV ceftriaxone, concerns for SBP
Hold diuretics for now but will restart down the road as well
Alcohol use disorder:
Patient with history of heavy alcohol use.
She does noted that she has not drank over the last 2 weeks since her hospitalization.
MSA protocol for now
DVT prophylaxis:
SCDs
CODE STATUS:
DNR
Total time spent on today's encounter was 52 minutes which included time spent in counseling the patient/family regarding diagnosis and treatment plan as listed above, goals of care, and symptom management. Case was discussed with nursing staff,
specialists, and care coordinators/case management. All labs and imaging personally reviewed by me. Remainder the time spent in detailed review of previous records, lab data, imaging, and other medical provider documentation.
Anticipated Discharge: > 48 hours
Subjective/Interval History
-
Date of Service: July 18, 2024
She still having some rectal bleeding but much less. Generalized weakness. Complains of abdominal pain.
Objective Data
-
Labs:
Laboratory Results
07/17/24 07/18/24 07/18/24
22:00 03:32 03:32
WBC 7.5
Hgb Cancelled 6.7 L* D Cancelled
Hct Cancelled 19.2 L*
Plt Count
PT
INR
Sodium
Potassium
Chloride
Carbon Dioxide
BUN
Creatinine
Glucose
Calcium
Total Bilirubin
AST
ALT
Alkaline Phosphatase
07/18/24
03:32
WBC
Hgb
Hct Cancelled
Plt Count 225 D
PT 18.2 H
INR 1.49
Sodium 128 L
Potassium 3.6
Chloride 100
Carbon Dioxide 24
BUN 10
Creatinine 0.4 L
Glucose 104 H
Calcium 7.3 L
Total Bilirubin 1.3
AST 46 H
ALT 20
Alkaline Phosphatase 156 H
Vital Signs:
Vital Signs
Temp Pulse Resp BP Pulse Ox
98.3 F 84 18 96/74 98
07/18/24 08:14 07/18/24 08:01 07/18/24 08:01 07/18/24 08:01 07/18/24 08:01
I&O
07/17/24 07/18/24 07/19/24
06:59 06:59 06:59
Intake Total 2518 / 2518 250 / 250
Balance 2518 / 2518 250 / 250
[2024-07-18] MEDS: TYLENOL 650 MG PO ×2 (10:40→20:28)
[2024-07-18 13:01] LABS: Hemoglobin 9.7 g/dL (12.0-16.0)
[2024-07-18] MEDS: MAGNESIUM SULFATE 50 IV (13:56)
[2024-07-18] MEDS: LR IV (14:24)
--- NOTE | 2024-07-18 16:04 | CM ---
Met with patient at bedside; initial assessment and case management consult completed
Pharmacy verified: [facility] @ [address] [place] [address]
[facility] Counseling offered; patient declined
Patient lives in a multilevel home with and 22 yr old son; 3 steps to enter; 12 steps between floors; railing on stairs; powder room 1st floor; 2nd floor bath has stall shower
PLOF: reported she has been staying on the 1st floor; needed assistance going up the steps; ambulated with a rolling walker; not driving at this time
Reported she was given a script for outpatient PT @
NO SNF or Home Health utilization history
will transport home
Plan: discharge to home when stable; CM will monitor for needs/services
[2024-07-18] MEDS: NULYTELY SOLUTION 2 LITERS PO (17:22)
[2024-07-18] MEDS: FLUSH (NSS) IV (17:59)
--- NOTE | 2024-07-18 18:00 | PTCARENOTE ---
Rec'd pt this AM. Colonoscopy prep began at 1800. Pt upset stating that she has been on a fluid restriction and now we are giving her large amount of fluid for the bowel prep. RN explained to pt that her concern was discussed with who reported
that pt does not require fluid restiction at this time due to her Sodium levels being stable and that the prep is perfectly safe. Pt continued to state 'you people are crazy'. RN provided support and education as much as possible. vital signs are
stable. hgb stable after 1 unit PRBC today.
[2024-07-18] MEDS: PROTONIX IV 40 MG IV (20:29)
[2024-07-18] MEDS: ROCEPHIN 1000 MG IV (20:29)
[2024-07-18] MEDS: NSS (PRESERVATIVE FREE) 10 ML IV (20:29)
[2024-07-18] MEDS: STERILE WATER FOR INJECTION 10 ML IV (20:29)
[2024-07-18 20:35] LABS: Hemoglobin 10.5 g/dL (12.0-16.0)
[2024-07-19] VITALS (22 sets, daily range): BP systolic 69–122; BP diastolic 63–89; BMI 21.3
[2024-07-19] MEDS: ZOFRAN 4 MG IV (03:12)
[2024-07-19 04:40] LABS: INR 1.28; PT 16.3 Sec (11.4-14.6)
[2024-07-19 05:00] LABS: ALT (SGPT) 24 U/L (0-35); AST (SGOT) 56 U/L (14-36); Albumin 2.4 g/dl (3.5-5.0); Alkaline Phosphatase 187 U/L (38-126); Blood Urea Nitrogen 7 mg/dl (7-17); Calcium 7.6 mg/dl (8.4-10.2); Carbon Dioxide 20 mmol/L (22-30); Chloride 101 mmol/L (98-107); Direct Bilirubin 0.8 mg/dl (0.0-0.4); Glucose 116 mg/dl (70-99); Magnesium 1.9 mg/dl (1.6-2.3); Potassium 3.7 mmol/L (3.5-5.1); Sodium 127 mmol/L (135-145); Total Bilirubin 1.7 mg/dl (0.2-1.3); Total Protein 5.9 g/dl (6.3-8.2); eGFR > 60.00
[2024-07-19 05:19] LABS: % Eosinophils 2.4 % (0-6); % Immature Granulocytes 1.4 % (0-0.5); % Lymphocytes 21.5 % (20.5-51.1); % Neutrophils 62.7 % (42.2-75.2); Absolute Basophils 0.2 10^3/uL (0-0.2); Absolute Eosinophils 0.2 10^3/uL (0-0.7); Absolute Immature Granulocytes 0.1 10^3/uL (0-0.05); Absolute Lymphocytes 1.7 10^3/uL (1.2-3.4); Absolute Monocytes 0.8 10^3/uL (0.1-0.6); Hematocrit 29.9 % (37.0-47.0); Hemoglobin 10.5 g/dL (12.0-16.0); Mean Corp Hgb Conc. 35.1 g/dL (33.0-37.0); Mean Corpuscular Hgb 34.7 pg (27.0-31.0); Mean Corpuscular Volume 98.7 fL (81.0-99.0); Nucleated Red Blood Cells % 0 %; Platelet Count 254 10^3/uL (130-400); Red Blood Cell Count 3.03 10^6/uL (4.20-5.40)
[2024-07-19] MEDS: NULYTELY SOLUTION 2 LITERS PO (05:46)
--- NOTE | 2024-07-19 05:59 | PTCARENOTE ---
Received pt at change of shift. Pt extremely displeased regarding the bowel prep. States 'I wish I never came here to get treated'. Explained to pt about the risk of not getting treated and she said 'yeah. I know'. Difficulty getting pt to
drink the 2nd round of bowel prep. Multiple BMs; soft, brown. Continuing to educate pt on need to complete the bowel prep. Resting in bed with call julian in reach.
[2024-07-19 07:15] LABS: Anisocytosis 2+; Normal RBC Morphology No; Polychromasia 1+; Target Cells 1+
[2024-07-19 07:16] LABS: Ovalocytes Occasional
--- NOTE | 2024-07-19 08:38 | W.PN.HOSP.TC ---
Today's Communication/Plan
-
Paracentesis
Colonoscopy
Assessment / Plan
Assessment / Plan
Gen-AAOx3, NAD
HEENT-NC, AT, anicteric, clear oral mm
Neck-supple
CV-reg, no M, +S1/S2
Lungs-clear B/L
Abd-soft, NT, ND
Ext-no edema
Musculoskeletal-no cyanosis, clubbing
Skin-warm and dry
Neuro-grossly non-focal
Psych-calm, cooperative
Acute GI bleed:
Upper versus lower GI source but most likely the latter
Clear liquid diet for now
Monitor hemoglobin post-transfusion
Protonix drip
Octreotide drip
IV ceftriaxone
Stat CTA of the abdomen and pelvis and reviewed results
EGD performed 07/08 showed no varices, portal hypertensive gastropathy, gastric erosions, 1 with active oozing. Clips were placed. Normal duodenum.
For colonoscopy today.
Acute blood loss anemia: Due to GI bleed. Hemoglobin 6.7 on 07/18, transfuse 1 unit of blood, 10.5 today.
Relative hypotension: Blood pressure improved with IV fluids.
Hypokalemia: Improved.
Chronic hyponatremia: Likely due to cirrhosis. Sodium stable. Fluid restriction.
Hypomagnesemia: Improved.
Decompensated cirrhosis:
Paracentesis today.
Continue IV ceftriaxone, concerns for SBP
Hold diuretics for now but will restart down the road as well
Alcohol use disorder:
Patient with history of heavy alcohol use.
She does noted that she has not drank over the last 2 weeks since her hospitalization.
MSAS protocol for now
DVT prophylaxis:
SCDs
CODE STATUS:
DNR
Updated at the bedside.
Anticipated Discharge: > 48 hours
Subjective/Interval History
-
Date of Service: July 19, 2024
Patient seen and examined. Complaining of not feeling well due to multiple factors including bowel prep, peripheral IV catheter, etc.
Objective Data
-
Labs:
Laboratory Results
07/19/24 07/19/24
04:11 05:04
WBC Cancelled 8.0
Hgb Cancelled 10.5 L
Hct Cancelled 29.9 L
Plt Count Cancelled 254
PT 16.3 H
INR 1.28
Sodium 127 L
Potassium 3.7
Chloride 101
Carbon Dioxide 20 L
BUN 7
Creatinine 0.4 L
Glucose 116 H
Calcium 7.6 L
Total Bilirubin 1.7 H
AST 56 H
ALT 24
Alkaline Phosphatase 187 H
Vital Signs:
Vital Signs
Temp Pulse Resp BP Pulse Ox
97.5 F 76 19 122/81 94
07/19/24 07:30 07/19/24 06:00 07/19/24 06:00 07/19/24 06:00 07/19/24 06:00
I&O
07/18/24 07/19/24 07/20/24
06:59 06:59 06:59
Intake Total 2518 / 2518 1580 / 1580
Output Total 250 / 250
Balance 2518 / 2518 1330 / 1330
Review of Systems
-
History Source: Patient
All other systems: Reviewed and negative
[2024-07-19] MEDS: NSS (PRESERVATIVE FREE) 10 ML IV (08:47)
[2024-07-19] MEDS: PROTONIX IV 40 MG IV (08:47)
[2024-07-19] MEDS: THIAMINE INJECTION 200 MG IV (08:47)
[2024-07-19] MEDS: FOLVITE 1 MG PO (08:47)
[2024-07-19] MEDS: SANDOSTATIN 500.6 MCG IV (10:38)
[2024-07-19 11:15] LABS: Body Fluid Mononuclear 50 %; Body Fluid Polymorphonuclear 50 %; Body Fluid WBC 74 /CUMM
[2024-07-19 11:38] LABS: Body Fluid Second Tech HB
--- NOTE | 2024-07-19 13:36 | PTCARENOTE ---
Pt completed bowel prep. very anxious, emotional with frequent complaints. Provided emotional support. pt went to IR and had thoracentesis with 4700ml taken off. Pt now at colonoscopy. vital signs stable.
--- NOTE | 2024-07-19 14:28 | W.PN.UPDATE ---
Update Note
Progress Note Update
also recommend 1 week of abx for sbp prophylaxis given bleeding
d/w CRS plan outpt follow up
see cscope notes for further recs
GI signing off
--- NOTE | 2024-07-19 14:31 | W.PN.UPDATE ---
Update Note
Progress Note Update
s/p para for 4700ml with na 127 will give albumin replacement
[2024-07-19] MEDS: FLEXBUMIN 100 IV (15:04)
[2024-07-19] MEDS: THIAMINE INJECTION IV (15:33)
[2024-07-19] MEDS: STERILE WATER FOR INJECTION 10 ML IV (20:18)
[2024-07-19] MEDS: ROCEPHIN 1000 MG IV (20:18)
[2024-07-20] MEDS: THIAMINE INJECTION 200 MG IV ×2 (00:03→09:21)
[2024-07-20 04:54] LABS: % Basophils 1.6 % (0-2); % Eosinophils 1.8 % (0-6); % Lymphocytes 23.4 % (20.5-51.1); % Monocytes 7.6 % (1.7-9.3); % Neutrophils 64.6 % (42.2-75.2); Absolute Basophils 0.1 10^3/uL (0-0.2); Absolute Eosinophils 0.2 10^3/uL (0-0.7); Absolute Immature Granulocytes 0.1 10^3/uL (0-0.05); Absolute Lymphocytes 2.1 10^3/uL (1.2-3.4); Absolute Monocytes 0.7 10^3/uL (0.1-0.6); Absolute Neutrophils 5.8 10^3/uL (1.4-6.5); Hematocrit 25.5 % (37.0-47.0); Hemoglobin 8.9 g/dL (12.0-16.0); Mean Corp Hgb Conc. 34.9 g/dL (33.0-37.0); Mean Corpuscular Hgb 34.2 pg (27.0-31.0); Mean Corpuscular Volume 98.1 fL (81.0-99.0); Mean Platelet Volume 8.8 fL (7.4-10.4); Nucleated Red Blood Cells % 0.3 %; Platelet Count 239 10^3/uL (130-400); Red Cell Dist. Width 21.2 % (11.5-14.5)
[2024-07-20 05:03] VITALS: BMI 22.4
[2024-07-20 05:15] LABS: ALT (SGPT) 17 U/L (0-35); AST (SGOT) 40 U/L (14-36); Alkaline Phosphatase 151 U/L (38-126); Blood Urea Nitrogen 6 mg/dl (7-17); Calcium 7.8 mg/dl (8.4-10.2); Carbon Dioxide 19 mmol/L (22-30); Chloride 104 mmol/L (98-107); Estimated Creatinine Clearance 88 ml/min; Glucose 119 mg/dl (70-99); Potassium 3.8 mmol/L (3.5-5.1); Sodium 129 mmol/L (135-145); Total Protein 5.1 g/dl (6.3-8.2); eGFR > 60.00
[2024-07-20 05:31] VITALS: BP 102/66
--- NOTE | 2024-07-20 05:38 | PTCARENOTE ---
Patient agitated with care at times. Emotional support given. Patient does not want anymore IV medications or sticks. Wants to go home today.
--- NOTE | 2024-07-20 08:44 | W.PN.HOSP.TC ---
Addendum entered and electronically signed by Srinath Jaimes DO 07/20/24 13:36:
Alcoholic cirrhosis of liver with ascites
Original Note:
Today's Communication/Plan
-
Discharge
Assessment / Plan
Assessment / Plan
Gen-AAOx3, NAD
HEENT-NC, AT, anicteric, clear oral mm
Neck-supple
CV-reg, no M, +S1/S2
Lungs-clear B/L
Abd-soft, NT, ND
Ext-no edema
Musculoskeletal-no cyanosis, clubbing
Skin-warm and dry
Neuro-grossly non-focal
Psych-calm, cooperative
Acute GI bleed -resolved. Colonoscopy performed yesterday showed possible portal colopathy, 2 polyps, internal and external hemorrhoids. No active bleeding noted. Biopsies pending.
EGD performed 07/08 showed no varices, portal hypertensive gastropathy, gastric erosions, 1 with active oozing. Clips were placed. Normal duodenum.
Tolerating diet. Outpatient GI follow-up.
Outpatient colorectal surgery follow-up for hemorrhoids. Discussed with patient.
Acute blood loss anemia: Due to GI bleed. Hemoglobin 8.9. Will need CBC in 1 week as an outpatient.
Relative hypotension: Likely due to cirrhosis. Blood pressure stable.
Hypokalemia: Improved.
Chronic hyponatremia: Likely due to cirrhosis. Sodium stable. Fluid restriction.
Hypomagnesemia: Improved.
Decompensated cirrhosis:
Paracentesis done by IR yesterday. 4.7 L removed. IV albumin administered.
GI recommends 7 days of antibiotics for SBP prophylaxis.
Discharge on furosemide and spironolactone. CMP in 1 week.
Alcohol use disorder:
Patient with history of heavy alcohol use.
She does noted that she has not drank over the last 2 weeks since her hospitalization.
MSAS protocol for now
DVT prophylaxis:
SCDs
CODE STATUS:
DNR
Dispo -medically stable for discharge home today. Outpatient follow-up.
32 minutes spent in discharge process.
Anticipated Discharge: Today
Subjective/Interval History
-
Date of Service: July 20, 2024
Patient seen and examined. No complaints.
Objective Data
-
Labs:
Laboratory Results
07/20/24 07/20/24
04:42 04:43
WBC 9.0
Hgb 8.9 L
Hct 25.5 L
Plt Count 239
Sodium 129 L
Potassium 3.8
Chloride 104
Carbon Dioxide 19 L
BUN 6 L
Creatinine 0.4 L
Glucose 119 H
Calcium 7.8 L
Total Bilirubin 1.0
AST 40 H
ALT 17
Alkaline Phosphatase 151 H
Vital Signs:
Vital Signs
Temp Pulse Resp BP Pulse Ox
98.4 F 74 17 102/66 90
07/20/24 03:20 07/19/24 16:45 07/19/24 16:45 07/20/24 05:31 07/20/24 05:34
I&O
07/19/24 07/20/24 07/21/24
06:59 06:59 06:59
Intake Total 1580 / 1580
Output Total 250 / 250
Balance 1330 / 1330
Review of Systems
-
History Source: Patient
All other systems: Reviewed and negative
--- NOTE | 2024-07-20 08:55 | W.DS.TRANS ---
DC Summary - Can[employer] Mark[employer]
-
Discharge Instructions:
Discharge Diagnosis/Procedures Acute blood loss anemia, GI bleed, hemorrhoids,
cirrhosis with ascites, paracentesis,
colonoscopy
Diet 2 Gram Sodium,Restrict fluids to 48 oz
Activity As tolerated
Driving Restrictions No driving for 24 hours
Bathing Restrictions None
Blood Work CBC, CMP in 1 week with your primary care doctor
Instructions:
Stand-Alone Forms:
Changes to Home Medications: No
Discharge Medications:
DC Medications w/original date entered in [employer]
folic acid 1 mg tablet 1 mg PO DAILY #30 tabs 07/13/24
thiamine mononitrate (vit B1) 100 mg tablet 200 mg (2 x 100 mg) PO DAILY #60 tabs 07/13/24
ciprofloxacin HCl 500 mg tablet 500 mg PO BID #8 tabs 07/20/24
furosemide 40 mg tablet 40 mg PO DAILY #30 tabs 07/20/24
hydrocortisone 2.5 % topical cream 1 applic topical BID PRN bleeding hemorrhoids #20 grams 07/20/24
pantoprazole 40 mg tablet,delayed release (Protonix) 40 mg PO DAILY #30 tabs 07/20/24
spironolactone 100 mg tablet 100 mg PO DAILY #30 tabs 07/20/24
Home Medication Changes
Pending Results: No
[2024-07-20] MEDS: PROTONIX 40 MG PO (09:22)
[2024-07-20] MEDS: FOLVITE 1 MG PO (09:22)
[2024-07-20 09:25] VITALS: BP 100/69
[2024-07-20 12:38] VITALS: BP 108/77
--- NOTE | 2024-07-20 12:39 | PN.CDI ---
CDI
- -
CDI:
Physician Documentation Request
Admit Date: 07/17/24 16:07
Dear Doctor Fiona,
Patient admitted with acute GI bleed.
07/20 PN, 'Decompensated cirrhosis.....Paracentesis done by IR yesterday. 4.7 L removed....Alcohol use disorder:
07/19 Paracentesis , 'Preliminary ultrasound of the abdomen showed large volume of ascites.'
Please provide in your note the diagnosis associated with the above findings:
Alcoholic cirrhosis of liver with ascites
Decompensated cirrhosis only
Other
Use of terms such as suspected, likely, concern for, or probable (associated with a specific diagnosis that is being evaluated, monitored, or treated as if it exists) are acceptable and can be coded in the inpatient setting, when documented at the
time of discharge.
Thank you,
Jayshree ERNSTN,RN,CCDS
CDI Specialist
Available via [employer] text
Please use your independent medical judgment in providing your response.
--- NOTE | 2024-07-20 13:09 | CM ---
Cm following for discharge planning. Jenni Frye is cleared for discharge. Her will transport her home.
Pt to follow up with outpatient PT/OT and has Rx.
Plan: discharge to home today with no identified needs.
== END 2024-07-20 12:55 | disposition home or self-care (01) | DRG 378 ==
LOC: IMU 16:07
PROVIDERS: Nurse Practitioner Adult Health; Radiology Diagnostic Radiology; ADMITTING PHYSICIAN Hospitalist; ATTENDING PHYSICIAN Hospitalist; CONSULT PHYSICIAN Internal Medicine Gastroenterology; EMERGENCY PHYSICIAN Emergency Medicine; FAMILY PHYSICIAN Family Medicine
PROC: 30233N1 Transfusion of Nonautologous Red Blood Cells into Peripheral Vein, Percutaneous Approach (ICD-10-PCS; 2024-07-18)
PROC: 0W9G3ZZ Drainage of Peritoneal Cavity, Percutaneous Approach (ICD-10-PCS; 2024-07-19)
PROC: 0DBL8ZX Excision of Transverse Colon, Via Natural or Artificial Opening Endoscopic, Diagnostic (ICD-10-PCS; 2024-07-19)
PROC: 0DBK8ZX Excision of Ascending Colon, Via Natural or Artificial Opening Endoscopic, Diagnostic (ICD-10-PCS; 2024-07-19)
DX: K92.2 Gastrointestinal hemorrhage, unspecified (principal); D62 Acute posthemorrhagic anemia; E87.1 Hypo-osmolality and hyponatremia; E87.20 Acidosis, unspecified; Q43.8 Other specified congenital malformations of intestine; K70.31 Alcoholic cirrhosis of liver with ascites; Z66 Do not resuscitate; F17.200 Nicotine dependence, unspecified, uncomplicated; I95.9 Hypotension, unspecified; E87.6 Hypokalemia; F10.10 Alcohol abuse, uncomplicated; E83.42 Hypomagnesemia; D12.2 Benign neoplasm of ascending colon; K64.4 Residual hemorrhoidal skin tags; K64.8 Other hemorrhoids; D12.3 Benign neoplasm of transverse colon; K63.89 Other specified diseases of intestine; K31.89 Other diseases of stomach and duodenum
CPT/HCPCS: 88305; 49083; 74174; 80053; 80306; 80307; 82077; 82248; 83735; 84100; 85014; 85018; 85025; 85027; 85610; 86850; 86900; 86901; 86920; 87015; 87070; 87205; 89051; 93005; 96361; 96374; 99284; 99406; P9016; P9047; Q9967

== ENCOUNTER → 2024-08-31 07:15 | Outpatient (REF) | payer OTHER, SELFPAY ==
[2024-08-31 07:30] VITALS: BP 113/77; BP_SYST 90
--- NOTE | 2024-08-31 07:55 | PTCARENOTE ---
Ultrasound done by Brandy CROCKETT. Not enough fluid to do procedure.
== END ==
LOC: RADI 07:15
PROVIDERS: ATTENDING PHYSICIAN Internal Medicine Gastroenterology
DX: R18.8 Other ascites (principal); Z53.8 Procedure and treatment not carried out for other reasons
CPT/HCPCS: 76705